=== PATIENT | female | born 1960 | race Caucasian/White ===

== ENCOUNTER 2018-02-27 19:35 | Inpatient (IN) | payer OTHER ==
[2018-02-27] MEDS ORDERED: NS 1,000 ML IV ONE (19:50)
--- NOTE | 2018-02-27 19:50 | EDPHY ---
H & P Stated Complaint: ABD bloating and pain Time Seen by Provider: 02/27/18 19:46 - Personal History Current Tetanus/Diphtheria Vaccine: Unsure Current Tetanus Diphtheria and Acellular Pertussis (TDAP): Unsure - Medical/Surgical History Hx Asthma: No Hx Chronic Respiratory Disease: No Hx Diabetes: No Hx Cardiac Disease: No Hx Renal Disease: No Hx Cirrhosis: No Hx Alcoholism: No Hx HIV/AIDS: No Hx Splenectomy or Spleen Trauma: No Other PMH: Factor V, Glaucoma - Social History Smoking Status: Never smoked Constitutional: Initial Vital Signs Temperature (C) 37.5 C 02/27/18 19:39 Heart Rate 118 H 02/27/18 19:39 Respiratory Rate 18 02/27/18 19:39 Blood Pressure 147/85 H 02/27/18 19:39 O2 Sat (%) 94 02/27/18 19:39 O2 Delivery Mode Room Air Allergies/Adverse Reactions: No Known Allergies Allergy (Verified 02/27/18 19:43) Home Medications: Medication Instructions Recorded Aspirin EC [Aspirin EC 81 mg (*)] 81 mg PO HS 02/27/18 Dorzolamide 2% [Trusopt 2% (*)] 1 drop EACHEYE BID 02/27/18 Latanoprost 0.005% [Xalatan 0.005% 1 drop EACHEYE HS 02/27/18 (*)] Timolol 0.5% [TIMOPTIC 0.5% (*)] 1 drop EACHEYE BID 02/27/18 Medical Decision Making - Diagnostics Imaging Results: Imaging Impressions Abdomen CT 02/27/18 19:51 Impression: 1. Two pelvic abscesses in the lower pelvis adjacent to the right side of the sigmoid colon most likely from sigmoid diverticulitis. 2. No appendicitis or bowel obstruction. Findings and recommendations discussed with Emergency Department physician, Harley Frias M.D., at 2110 hours on February 27, 2018. Final report concurs with initial preliminary interpretation. Imaging: Discussed imaging studies w/ call center director Radiologist ED Course/Re-evaluation: CHIEF COMPLAINT: Abdominal pain, bloating. HISTORY OF PRESENT ILLNESS: This patient is a 57 year old female with history of factor V Leiden arriving with her . She presents at the request of her primary care provider for evaluation of abdominal pain and an elevated white blood cell count. Her symptoms began around 02/13/18 after she and her had lobster dinner. They both initially had some abdominal discomfort, but his resolved after several days. She developed periumbilical pain initially, which radiated towards her right and left lower quadrant. This has persisted and is in different areas of her abdomen at different times. She has felt bloated during this time as well. She denies fever, vomiting, diarrhea, chest pain, shortness of breath, hematemesis, hematochezia, melena, or other associated symptoms. No history of abdominal surgeries. REVIEW OF SYSTEMS: A comprehensive 10 system review of systems is otherwise negative aside from elements mentioned in the history of present illness and medical decision making. PHYSICAL EXAM: HR, BP, O2 Sat, RR. Temp noted General Appearance: Alert, well hydrated, appropriate, and non-toxic appearing. Head: Atraumatic without scalp tenderness or obvious injury Eyes: Pupils equal, round, reactive to light and accommodation, EOMI, no trauma , no injection. Ears: Clear bilaterally, no perforation, normal landmarks Nose: Atraumatic, no rhinorrhea, clear. Throat: There is no erythema or exudates, no lesions, normal tonsils, mucus membranes moist. Neck: Supple, 2+ carotid upstroke, nontender, no lymphadenopathy. Respiratory: No retractions, no distress, no wheezes, and no accessory muscle use. Lungs are clear to auscultation bilaterally. Cardiovascular: Regular rate and rhythm, no murmurs, rubs, or gallops. Bilateral carotid, radial, dorsalis pedis, and posterior tibial pulses intact. Good capillary refill all extremities. Gastrointestinal: Mild LRQ tenderness. Abdomen is soft, non-distended, no masses , no rebound, no guarding, no peritoneal signs. Musculoskeletal: Normal active ROM of all extremities, atraumatic. Neurological: Alert, appropriate, and interactive. Nonfocal neuro exam. Skin: No rashes, good turgor, no nodules on palpation. Past medical history: Factor V Leiden Past surgical history: Noncontributory, no history of abdominal surgeries. Family history: Noncontributory Social history: . at bedside. Does not abuse tobacco, drugs, or alcohol. DIFFERENTIAL DIAGNOSIS: The differential diagnosis for the patient's abdominal pain included but was not limited to diverticulitis, ovarian cyst, pelvic inflammatory disease, ovarian torsion, urinary tract infection, cholecystitis, and appendicitis. MEDICAL DECISION MAKING: This patient is a 57 year old female complaining of abdominal pain and bloating ongoing for nearly three weeks. Plan for labs including CBC, chemistries, liver , lipase. Plan for CT abdomen/pelvis. WBC elevated at 18,000. Patient does not appear systemically ill at this time and does not complain of significant pain. 21:[address] Joya, radiologist. CT abdomen/pelvis shows two pelvic abscesses in the lower pelvis adjacent to the right side of the sigmoid colon most likely from sigmoid diverticulitis. No appendicitis or bowel obstruction. Plan to administer Ceftriaxone and Flagyl. Plan to consult with general surgery. 21:[address] Coleman, general surgeon. He will consult for possible surgical intervention. He requests this patient be admitted to the medicine service for perioperative management. 21:[address] Copeland, hospitalist. She accepts admission for sigmoid diverticulitis with abscesses and perforation. - Data Points Laboratory Results: Laboratory Results 02/27/18 20:00 02/27/18 20:00 02/27/18 02/27/18 02/27/18 20:04 20:00 20:00 WBC 17.99 10^3/uL H 10^3/uL (3.80-9.50) RBC 4.26 10^6/uL 10^6/uL (4.18-5.33) Hgb 13.3 g/dL g/dL (12.6-16.3) Hct 41.0 % % (38.0-47.0) MCV 96.2 fL fL (81.5-99.8) MCH 31.2 pg pg (27.9-34.1) MCHC 32.4 g/dL g/dL (32.4-36.7) RDW 12.7 % % (11.5-15.2) Plt Count 407 10^3/uL H 10^3/uL (150-400) MPV 8.7 fL fL (8.7-11.7) Neut % (Auto) 77.0 % H % (39.3-74.2) Lymph % (Auto) 14.9 % L % (15.0-45.0) [place] % (Auto) 6.8 % % (4.5-13.0) Eos % (Auto) 0.4 % L % (0.6-7.6) Baso % (Auto) 0.3 % % (0.3-1.7) Nucleat RBC Rel Count 0.0 % % (0.0-0.2) Absolute Neuts (auto) 13.85 10^3/uL H 10^3/uL (1.70-6.50) Absolute Lymphs (auto) 2.68 10^3/uL 10^3/uL (1.00-3.00) Absolute Monos (auto) 1.23 10^3/uL H 10^3/uL (0.30-0.80) Absolute Eos (auto) 0.07 10^3/uL 10^3/uL (0.03-0.40) Absolute Basos (auto) 0.05 10^3/uL 10^3/uL (0.02-0.10) Absolute Nucleated RBC 0.00 10^3/uL 10^3/uL (0-0.01) Immature Gran % 0.6 % % (0.0-1.1) Immature Gran # 0.11 10^3/uL H 10^3/uL (0.00-0.10) Sodium 140 mEq/L mEq/L (135-145) Potassium 3.9 mEq/L mEq/L (3.5-5.2) Chloride 108 mEq/L mEq/L (97-110) Carbon Dioxide 23 mEq/l mEq/l (22-31) Anion Gap 9 mEq/L mEq/L (6-14) BUN 11 mg/dL mg/dL (7-23) Creatinine 0.8 mg/dL mg/dL (0.6-1.0) Estimated GFR > 60 Glucose 110 mg/dL H mg/dL (70-100) Calcium 9.2 mg/dL mg/dL (8.5-10.4) Total Bilirubin 0.3 mg/dL mg/dL (0.1-1.4) Conjugated Bilirubin 0.3 mg/dL mg/dL (0.0-0.5) Unconjugated Bilirubin 0.0 mg/dL mg/dL (0.0-1.1) AST 33 IU/L IU/L (14-46) ALT 65 IU/L H IU/L (9-52) Alkaline Phosphatase 102 IU/L IU/L (38-126) POC Troponin I 0.00 ng/mL ng/mL (0.00-0.08) Total Protein 6.4 g/dL g/dL (6.3-8.2) Albumin 3.6 g/dL g/dL (3.5-5.0) Lipase 185 IU/L IU/L (23-300) Medications Given: Discontinued Medications Sodium Chloride (Ns) 1,000 mls @ 0 mls/hr IV EDNOW ONE; Wide Open PRN Reason: Protocol Stop: 02/27/18 19:51 Last Admin: 02/27/18 20:02 Dose: 1,000 mls Ceftriaxone Sodium/Dextrose (Rocephin 1 Gm (Premix)) 50 mls @ 100 mls/hr IV EDNOW ONE PRN Reason: Protocol Stop: 02/27/18 22:02 Last Admin: 02/27/18 21:53 Dose: 50 mls Metronidazole/Sodium Chloride (Flagyl 500 Mg (Premix)) 100 mls @ 100 mls/hr IV EDNOW ONE PRN Reason: Protocol Stop: 02/27/18 22:32 Last Admin: 02/27/18 22:35 Dose: 100 mls Point of Care Test Results: Chemistry 02/27/18 20:04 POC Troponin I 0.00 ng/mL ng/mL (0.00-0.08) Departure - Departure Disposition: [facility] Inpatient Acute Clinical Impression: Diverticulitis of intestine with perforation and abscess Qualifiers: Diverticulitis site: large intestine Diverticulitis bleeding: without bleeding Qualified Code(s): K57.20 - Diverticulitis of large intestine with perforation and abscess without bleeding Condition: Fair Report Scribed for: Harley Frias Report Scribed by: Jane Allen Date of Report: 02/27/18 Time of Report: 22:16
[2018-02-27] MEDS ORDERED: IOPAMIDOL (ISOVUE 370) 100 ML BTL IV ONE (20:07)
[2018-02-27 20:10] LABS: PLATELET COUNT 407 10^3/uL (150-400)
--- NOTE | 2018-02-27 21:55 | PDGENHP ---
History and Physical History and Physical: Chief complaint: Abdominal pain History of present illness: The patient is a 57yo F here for abd pain that began about 12 days ago. She had eaten lobster, as well as her , and afterward they both experienced lower abdominal discomfort for several days. His discomfort resolved, but hers did not. Her abdominal discomfort has been constant. She has felt fevers at night which self-resolved. No nausea or vomiting. No diarrhea or blood in the stool. She has felt constipated and was taking Metamucil TID and drinking prune juice. Her stools looked abnormal - sometimes [place] and covered in mucus. Symptoms are better with rest and having a BM. Symptoms are worse with moving around too much. Other associated symptoms: feels off balance with moving and more irritable in the last couple weeks. Past medical history: DVT, factor 5 Leiden mutation, glaucoma. Past surgical history: Partial Hysterectomy - uterus. Medications: Please see med rec form. Allergies: No known allergies. Social history: Never smoker. Does not drink or do drugs. , lives with . Owns a business. Family history: Mother - lupus. Father- heart condition. Sisters - factor V Leiden and glaucoma. Review of systems: 10 point review of systems was conducted and is negative except per HPI. Physical exam: Vitals: Reviewed General: The patient is a female who is alert and in no acute distress. HEENT: normocephalic, extraocular movements intact, conjunctivae clear, no lesions on face. Mucous membranes moist. Neck: trachea midline, no visible masses, no external lesions. CV: +S1/S2, RRR, no MRG. Resp: unlabored, CTAB no RRW. Abd: soft and nondistended. LLQ tenderness. No rebound tenderness or guarding. Musculoskeletal: Normal muscle tone and bulk. Neuro: cranial nerves II - XII grossly intact. Intact gross motor and sensory function. Psych: appropriate mood/affect. Skin: No pallor. Heme/lymph: No peripheral edema. Rectal: declined. Labs: WBC 18 platelets 407 glucose 110 ALT 65. Rest of labs are within normal limits. Other Data: CT of the abdomen and pelvis with contrast: 2 pelvic abscesses in lower pelvis adjacent to the right side of the sigmoid colon most likely from sigmoid diverticulitis. Impression and plan: Acute diverticulitis with complication Pelvic abscesses, 2/2 above Abd pain, 2/2 above Leukocytosis and thrombocytosis, 2/2 above Hyperglycemia -IVF. Cipro/Flagyl given in ED. -prn analgesics. -pt prefers prune juice over bowel protocol. -I have d/w Gen Surg Dr. Coleman who will see patient shortly. Pt will likely get surgery or IR drainage. -VTE ppx - start Lovenox after procedure. SCDs for now. -Code status - full. -Inpt for > 2 midnight stay, as pt needs IV Abx, IV fluids, surgery vs procedure with subsequent monitoring.
[2018-02-27] MEDS ORDERED: ACETAMINOPHEN 325 MG TAB PO PRN (22:20)
[2018-02-27] MEDS ORDERED: ONDANSETRON DISINTEGRATING 4 MG TAB PO PRN (22:20)
[2018-02-27] MEDS ORDERED: PROMETHAZINE HCL 25 MG/ML INJ IVP PRN (22:20)
[2018-02-27] MEDS ORDERED: HYDROCODONE/APAP 5/325 TAB PO PRN (22:20)
[2018-02-28] MEDS: NS W/ 20 KCl/L 1,000 ML IV SCH ×2 (00:18→18:11)
--- NOTE | 2018-02-28 02:18 | GCON ---
REFERRING PHYSICIAN: Harley Frias MD REASON FOR CONSULTATION: Diverticular abscesses (x2). HISTORY: The patient is a 57-year-old female who was in her usual state of good health until February 16, when she had the onset of abdominal pain. She has had no prior similar symptoms. She moves her bowels approximately once a day. There is no recent upper respiratory tract infection or diarrhea. Because of her abdominal pain, she essentially stopped eating due to the discomfort. Since admission, she has moved her bowels several times and her pain is now not diffuse, but more in the right lower quadrant and much improved. There is no history of inflammatory bowel disease. PAST MEDICAL HISTORY: She does not smoke. She drinks alcohol on a very rare occasion. ALLERGIES: She has no known drug allergies. MEDICATIONS: Only medications have been for her glaucoma and 81 mg aspirin because of her factor 5 Leiden deficiency. PAST SURGICAL HISTORY: Surgeries have been limited to a total abdominal hysterectomy which was complicated by a ureteral injury. That was reconstructed. She has had problems with microscopic hematuria since that time. She has also had a tonsillectomy and 1 vaginal . There is no history of rheumatic fever, tuberculosis, hepatitis, or transfusions. She has had glaucoma for approximately 10 years. She wears lenses for distance correction. She has had, I believe, 5 episodes of clots, 4 in her right leg and 1 in her right arm. The very 1st was when she started using oral contraceptives. Others were related to surgeries. There is a history of shingles. Her last mammogram was 2 years ago. She is known to have microscopic hematuria and has been worked up on a regular basis for that. She does not know if it persists at this time. There are no limits on her activities. No history of steroid use. PHYSICAL EXAMINATION: GENERAL: She is awake, alert, quite pleasant and engaging. VITAL SIGNS: Her blood pressure is 157/95 and her saturations are 94%. Her temperature is 37.2. HEENT: Skull is normocephalic and atraumatic. There is no cervical, supraclavicular, axillary or inguinal lymphadenopathy. LUNGS: Clear to auscultation. CARDIAC: Shows S1, S2 to be normal. Normal split of S2 without murmurs, rubs, or gallops. ABDOMEN: Tender approximately 3 fingerbreadths inferior to McBurney's point. It is tender with palpation or cough at a level of 2/10. Other than that, her abdomen is really quite soft. It is distended. She does have normoactive bowel sounds. LABORATORIES: Reveal a white count of 17.9 with 77% neutrophils. Her hematocrit is 41. Her platelet count is 407. INR is 1.04. Sodium is 140, potassium is 3.9, glucose is 110. Lipase is 185. By CT, she has 2 abscesses, 1 of which is 4.3 x 2.5 x 7.8 cm. The other is 6.2 x 3.2 cm. She also has a right renal cyst. IMPRESSION/PLAN: This patient does not appear toxic at this point. I would recommend that we continue IV antibiotics, hold her n.p.o. and see how she does by the morning. These 2 abscesses down in the pelvis will be difficult to reach percutaneously. If she continues to improve, we can approach it nonoperatively. If she fails to continue to progress, then I feel bowel prep and surgical exploration may be necessary, perhaps with a sigmoid resection. The patient understands the approach and agrees to proceed as outlined. /[id number]/MODL MTDD
[2018-02-28 05:41] LABS: PLATELET COUNT 431 10^3/uL (150-400)
[2018-02-28] MEDS: ACETAMINOPHEN 500 MG TAB PO SCH ×3 (05:51→23:18)
[2018-02-28] MEDS ORDERED: PIPERACILLIN/TAZO 3.375 GM/DEX 50 ML IV SCH (06:00)
[2018-02-28] MEDS: TIMOLOL 0.5% 15 ML OPHT.BTL EACHEYE SCH ×3 (08:00→19:43)
[2018-02-28] MEDS ORDERED: NITROGLYCERIN 0.4 MG BTL SL PRN (08:47)
[2018-02-28] MEDS ORDERED: ERTAPENEM 1 GM in NS 100 ML IV SCH (09:00)
[2018-02-28] MEDS: DORZOLAMIDE 2% OPTH DROPS EACHEYE SCH ×2 (09:05→19:43)
[2018-02-28] MEDS: ERTAPENEM 1 GM in NS 100 ML IV SCH (09:55)
--- NOTE | 2018-02-28 11:29 | PDCONSULT ---
Manager Acute Note: 02/28/2018 PAD#2 Assessment: Feels well, Having frequent stools, Afebrile, WBC essentially stable, % neutrophils decreased slightly. Abdomen minimally tender. Tolerating process well. Plan: Patient with two abscesses of moderate sizes that would not be amenable to percutaneous drainage per Radiology yesterday. If improves with antibiotic approach will continue along that path. As I doubt that that will be our course , I will plan a bowel prep today so that surgical exploration safety will be optimized if exploration is necessary.
[2018-02-28] MEDS ORDERED: PEG 3350/NA SULF,BICARB,CL/KCL (GAVILYTE-G) 4000 ML BTL PO ONE (11:30)
--- NOTE | 2018-02-28 12:12 | ASMTCMCOM ---
CM Note CM Note Notes: Pt is a 57 y/o female admitted for abdominal pain. Pt will most likely d/c independent when medically stable. No therapies ordered at this time. CM available for changes. Plan: Independent Date Signed: 02/28/2018 12:12 PM Electronically Signed By:MUNA Houston
--- NOTE | 2018-02-28 14:38 | CPEKG ---
Test Reason : OPEN Blood Pressure : / mmHG Vent. Rate : 077 BPM Atrial Rate : 077 BPM P-R Int : 138 ms QRS Dur : 078 ms QT Int : 379 ms P-R-T Axes : 068 031 044 degrees QTc Int : 429 ms Sinus rhythm Confirmed by Georges Garcia ([id number]) on 02/28/2018 2:38:18 PM Referred By: Confirmed By:Georges Garcia
--- NOTE | 2018-02-28 15:21 | PDMN ---
Medical Necessity Medical necessity: Pt meets inpt criteria per MD order and MCG M-150, Diverticulitis, Acute w/abcess. 57 y/o presenting w/abd pain, admitted w/acute diverticulitis complicated by mod size pelvic abscesses, IV ABX's, surg consult- may need surg intervention. Est LOS>2MN for ongoing eval/management of above.
[2018-02-28] MEDS: ERYTHROMYCIN BASE 250 MG PO SCH ×4 (17:25→22:36)
[2018-02-28] MEDS: NEOMYCIN SULF 500 MG TAB PO SCH ×4 (17:29→22:35)
--- NOTE | 2018-02-28 17:33 | HOSPPROG ---
Hospitalist Progress Note Assessment/Plan: * Acute diverticulitis with abscess -IV invanz per Dr. Coleman preference * Intra-abdominal abscess x 2 -reviewed with Dr. Garcia - abscess too large for medical therapy -location likely not amenable to percutaneous drainage -will likely need surgery - Dr. Coleman starting prep * Sepsis as evidenced by leukocytosis and tachycardia * h/o DVT with + Factor V Leiden -Lovenox x 1 today as no plan for imminent surgery Subjective: Still with lower abdominal pressure Objective: Vital Signs Temp Pulse Resp BP Pulse Ox 36.6 C 86 16 150/96 H 94 02/28/18 15:24 02/28/18 15:24 02/28/18 15:24 02/28/18 15:24 02/28/18 15:24 Laboratory Results 02/28/18 04:24 02/28/18 04:24 02/27/18 02/28/18 03/01/18 05:59 05:59 05:59 Intake Total 1600 Balance 1600 d/w Dr. Coleman - will likely need surgery, he is starting prep CT abd - large 7cm abscess - Physical Exam Constitutional: no apparent distress, appears nourished, not in pain Cardiovascular: regular rate and rhythym, no murmur, rub, or gallop Respiratory: no respiratory distress, no rales or rhonchi, clear to auscultation Gastrointestinal: tenderness, distension, No ascites, No guarding, No rebound Skin: no rashes or abrasions, no fluctuance, no induration Neurologic: AAOx3, sensation intact bilaterally Psychiatric: interacting appropriately, not anxious, not encephalopathic, thought process linear ICD10 Worksheet Patient Problems: Problems Problem Status Onset Diverticulitis of intestine with perforation and abscess Acute
[2018-02-28] MEDS ORDERED: ENOXAPARIN 40 MG/0.4 ML SYR SC ONE (17:37)
[2018-02-28] MEDS: LATANOPROST 0.005% 2.5 ML OPHT DROPS EACHEYE SCH (19:43)
[2018-02-28] MEDS ORDERED: PROCHLORPERAZINE MALEATE 25 MG SUPPR PR ONE (21:00)
[2018-02-28] MEDS: SCOPOLAMINE HYDROBROMIDE 1 MG/3 DAYS PATCH TD SCH (21:34)
[2018-03-01] MEDS: ERYTHROMYCIN BASE 250 MG PO SCH ×2 (02:40→06:32)
[2018-03-01] MEDS: NEOMYCIN SULF 500 MG TAB PO SCH ×2 (02:40→06:33)
[2018-03-01 06:14] LABS: PLATELET COUNT 385 10^3/uL (150-400)
[2018-03-01] MEDS: ACETAMINOPHEN 500 MG TAB PO SCH ×3 (06:36→22:15)
[2018-03-01] MEDS: D5W 1/2 NS W/ 20 KCl/L 1,000 ML IV SCH ×2 (07:39→20:15)
--- NOTE | 2018-03-01 08:46 | SOAPPROG ---
KAREN Progress Note Assessment/Plan: Assessment/Plan: Covering for Dr. Coleman today regarding surgical options for treatment of perforated diverticulitis. The patient has 2 intra-abdominal abscesses 1 on the right lower pelvis close to the rectum is amenable to drainage percutaneously however then larger mid abdominal contained abscess on likely a to be able to have percutaneous drainage. She is clinically stable diffuse asking for water today. She has undergone bowel prep. CT scan of the abdomen and pelvis to reassess abscess is pending. Even if the right lower abscess is amenable to drainage, she will still likely need intervention if she does not improve. The area of perforation is not well defined and questions of laparoscopic vs open surgical drain placement for the mid abdominal abscess is on the table. She may need formal resection if the area of perforation has not sealed or is so undefined. Given the fact that she may need surgical resection temporary colostomy must be considered also. White blood cell count today is 16 down from 17 which is stable. The patient has no additional pain or fevers. Her heart rate has been between 80s and 90s over the last 12 hrs. No concerns for deterioration today. Regular rate and rhythm Clear to auscultation Abdomen soft diffusely tender mostly in the lower abdomen no david peritonitis. Extremities without edema Impression/plan likely perforated diverticulitis with 2 contained abscesses right lower quadrant amenable to percutaneous drainage. Reassess mid abdominal abscess to see whether it is amenable to percutaneous drainage as well which could temporize an operation until a single stage procedure can be done. Alternatively laparotomy with colostomy on option. Follow-up today after CT scan. Will discuss with interventional Radiology. Discussion with patient held all questions were answered. 03/01/18 08:36 Objective: Vital Signs Temp Pulse Resp BP Pulse Ox 36.8 C 91 18 152/96 H 95 03/01/18 07:35 03/01/18 07:35 03/01/18 07:35 03/01/18 07:35 03/01/18 07:35 Laboratory Results 03/01/18 04:52 03/01/18 04:52 02/28/18 03/01/18 03/02/18 05:59 05:59 05:59 Intake Total 1600 Output Total 250 Balance 1600 -250 ICD10 Worksheet Patient Problems: Problems Problem Status Onset Diverticulitis of intestine with perforation and abscess Acute
[2018-03-01] MEDS: DORZOLAMIDE 2% OPTH DROPS EACHEYE SCH ×2 (09:13→20:17)
[2018-03-01] MEDS: TIMOLOL 0.5% 15 ML OPHT.BTL EACHEYE SCH ×2 (09:13→20:16)
[2018-03-01] MEDS: ERTAPENEM 1 GM in NS 100 ML IV SCH (09:17)
[2018-03-01] MEDS: KETOROLAC 30 MG/1 ML SDV IVP PRN (10:23)
[2018-03-01] MEDS ORDERED: IOPAMIDOL (ISOVUE 370) 100 ML BTL IV ONE (12:15)
[2018-03-01] MEDS ORDERED: HYDROmorphONE/DILAUDID 1 MG/ML INJ IVP PRN (12:59)
--- NOTE | 2018-03-01 17:18 | HOSPPROG ---
Hospitalist Progress Note Assessment/Plan: * Acute diverticulitis with abscess -IV invanz per Dr. Coleman preference * Intra-abdominal abscess x 2 -abscess too large for medical therapy -location not amenable to percutaneous drainage - d/w Dr. Butt -will likely need surgery - d/w Dr. Ramirez * Sepsis as evidenced by leukocytosis and tachycardia * h/o DVT with + Factor V Leiden -Lovenox x 1 today as no plan for imminent surgery Subjective: not real change Objective: Vital Signs Temp Pulse Resp BP Pulse Ox 36.8 C 74 18 152/96 H 94 03/01/18 15:57 03/01/18 15:57 03/01/18 15:57 03/01/18 15:57 03/01/18 15:57 Laboratory Results 03/01/18 04:52 03/01/18 04:52 02/28/18 03/01/18 03/02/18 05:59 05:59 05:59 Intake Total 1600 Output Total 250 Balance 1600 -250 ct abd - persistent abscess - Physical Exam Constitutional: no apparent distress, appears nourished, not in pain Cardiovascular: regular rate and rhythym, no murmur, rub, or gallop Respiratory: no respiratory distress, no rales or rhonchi, clear to auscultation Gastrointestinal: tenderness, distension, No guarding, No rebound Skin: no rashes or abrasions, no fluctuance, no induration Neurologic: AAOx3, sensation intact bilaterally Psychiatric: interacting appropriately, not anxious, not encephalopathic, thought process linear ICD10 Worksheet Patient Problems: Problems Problem Status Onset Diverticulitis of intestine with perforation and abscess Acute
[2018-03-01] MEDS: LATANOPROST 0.005% 2.5 ML OPHT DROPS EACHEYE SCH (20:17)
[2018-03-02] MEDS: ACETAMINOPHEN 500 MG TAB PO SCH ×3 (05:13→22:34)
[2018-03-02] MEDS: D5W 1/2 NS W/ 20 KCl/L 1,000 ML IV SCH (05:14)
[2018-03-02 06:03] LABS: PLATELET COUNT 398 10^3/uL (150-400)
--- NOTE | 2018-03-02 08:33 | PDCONSULT ---
Steel Inspector Note: 03/02/2018 PAD#3 Assessment: She has two intra-abdominal abscesses and sigmoid diverticulitis. There does not appear to be an ongoing colonic leak. She is on antibiotic therapy and is not toxic but is not improving. Unfortunately the central abscess is not amenable to percutaneous drainage. She has undergone a mechanical and antibiotic bowel prep in anticipation of a laparotomy today. I plan to drain the abscesses. If there is no colonic leak I will not plan a colonic resection at this time. If a colonic resection is required, a colostomy is a possibility. Because of her Factor V Leiden associated hypercoagulopathy, an ultrasound exam will be performed this AM ( done but not read ). If a DVT is identified, a filter will be considered. Will plan post op Lovenox as well as ambulation. Exam: Awake and alert VSS Lungs clear, normal breath sounds Regular heart rate and rhythm abdomen is distended but has positive bowel sounds Plan: Duplex evaluation, filter (temporary) if necessary Exploratory laparotomy today. Doubt that post op ICU visit will be necessary
[2018-03-02] MEDS: DORZOLAMIDE 2% OPTH DROPS EACHEYE SCH ×2 (09:10→20:02)
[2018-03-02] MEDS: TIMOLOL 0.5% 15 ML OPHT.BTL EACHEYE SCH ×2 (09:11→20:02)
[2018-03-02] MEDS ORDERED: LR 1,000 ML IV ONE (09:25)
[2018-03-02] MEDS: ERTAPENEM 1 GM in NS 100 ML IV SCH (09:30)
[2018-03-02] MEDS ORDERED: MIDAZOLAM 2 MG/2 ML VIAL IVP ONE (10:27)
--- NOTE | 2018-03-02 10:27 | PDANEPAE ---
ANE History of Present Illness diverticular abscess ANE Past Medical History - Cardiovascular History Hx Hypertension: No Hx Arrhythmias: No Hx Chest Pain: No Hx Coronary Artery / Peripheral Vascular Disease: No Hx CHF / Valvular Disease: No Hx Palpitations: No - Pulmonary History Hx COPD: No Hx Asthma/Reactive Airway Disease: No Hx Recent Upper Respiratory Infection: No Hx Oxygen in Use at Home: No Hx Sleep Apnea: No Sleep Apnea Screening Result - Last Documented: Negative - Neurologic History Hx Cerebrovascular Accident: No Hx Seizures: No Hx Dementia: No - Endocrine History Hx Diabetes: No Hypothyroid: No Hyperthyroid: No Obesity: no - Renal History Hx Renal Disorders: No - GI History GERD: no Hx Gastrointestinal Disorders: Yes Gastrointestinal History Comment: Diverticulosis. Now has diverticular abscess x 2 - Chronic Pain History Chronic Pain: No ANE Review of Systems Review of systems is: negative Review of Systems: - Exercise capacity Exercise capacity: >=4 METS ANE Patient History - Allergies Allergies/Adverse Reactions: No Known Allergies Allergy (Verified 02/27/18 19:43) - Home Medications Home medications: home medication list seen and reviewed Home Medications: Aspirin EC [Aspirin EC 81 mg (*)] 81 mg PO HS 02/27/18 [Last Taken 02/26/18] Dorzolamide 2% [Trusopt 2% (*)] 1 drop EACHEYE BID 02/27/18 [Last Taken 21:00] Latanoprost 0.005% [Xalatan 0.005% (*)] 1 drop EACHEYE HS 02/27/18 [Last Taken 02/27/18 21:00] Timolol 0.5% [TIMOPTIC 0.5% (*)] 1 drop EACHEYE BID 02/27/18 [Last Taken 21:00] - NPO status NPO Status: no food or drink >8 hours NPO Since - Liquids (Date): 03/02/18 NPO Since - Liquids (Time): 00:00 NPO Since - Solids (Date): 03/02/18 NPO Since - Solids (Time): 00:00 - Smoking Hx Smoking Status: Never smoked - Family Anes Hx Family Anes Hx: none ANE Labs/Vital Signs - Labs Result Diagrams: 03/02/18 05:07 03/02/18 05:07 - Vital Signs Vital Signs: reviewed preoperatively; see RN documention for details Blood Pressure: 166/105 Heart Rate: 81 Respiratory Rate: 16 O2 Sat (%): 97 Height: 162.56 cm Weight: 67.9 kg ANE Physical Exam - Airway Neck exam: FROM Mallampati Score: Class 2 Mouth exam: normal dental/mouth exam - Pulmonary Pulmonary: no respiratory distress - Cardiovascular Cardiovascular: regular rate and rhythym - ASA Status ASA Status: II, E ANE Anesthesia Plan Anesthesia Plan: general endotracheal anesthesia Regional Anesthesia: TAP block
[2018-03-02] MEDS ORDERED: MIDAZOLAM 2 MG/2 ML VIAL ONE (10:28)
[2018-03-02] MEDS ORDERED: fentaNYL 100 MCG/2 ML INJ ONE (10:33)
[2018-03-02] MEDS ORDERED: PROPOFOL 200 MG/20 ML VIAL ONE ×2 (10:33)
[2018-03-02] MEDS ORDERED: ROCURONIUM 50 MG/5 ML VIAL ONE (10:44)
[2018-03-02] MEDS ORDERED: LIDOCAINE 2% 5 ML SDV ONE (10:44)
[2018-03-02] MEDS ORDERED: DEXAMETHASONE 4 MG/ML VIAL ONE ×2 (10:56)
[2018-03-02] MEDS ORDERED: HYDROmorphONE/DILAUDID 2 MG/ML INJ ONE (10:56)
[2018-03-02] MEDS ORDERED: ONDANSETRON 4 MG/2 ML VIAL ONE (10:59)
[2018-03-02] MEDS ORDERED: oxyCODONE IR 5 MG TAB PO PRN (11:07)
[2018-03-02] MEDS ORDERED: fentaNYL 100 MCG/2 ML INJ IVP PRN (11:07)
[2018-03-02] MEDS ORDERED: HYDROmorphONE/DILAUDID 2 MG/ML INJ IVP PRN (11:07)
[2018-03-02] MEDS ORDERED: LR 500 ML IV PRN (11:07)
[2018-03-02] MEDS ORDERED: NALOXONE HCL 0.4 MG/ML INJ IVP PRN (11:07)
[2018-03-02] MEDS ORDERED: ACETAMINOPHEN 500 MG TAB PO PRN (11:07)
[2018-03-02] MEDS ORDERED: LABETALOL HCL 5 MG/ML 20 ML MDV IVP PRN (11:07)
[2018-03-02] MEDS ORDERED: PHENYLEPHRINE HCL 100 MCG/ML SYR IVP PRN (11:07)
[2018-03-02] MEDS ORDERED: ALBUTEROL 3 ML DEYVIAL IH PRN (11:07)
[2018-03-02] MEDS ORDERED: PROMETHAZINE HCL 25 MG/ML INJ IVP PRN (11:07)
[2018-03-02] MEDS ORDERED: METOCLOPRAMIDE 10 MG/2 ML VIAL IVP PRN (11:07)
[2018-03-02] MEDS ORDERED: MEPERIDINE 25 MG/0.5 ML AMP IVP PRN (11:07)
[2018-03-02] MEDS ORDERED: ROPIVACAINE HCL 150 MG/30 ML INJ ONE (11:24)
[2018-03-02] MEDS ORDERED: SUGAMMADEX SODIUM 200 MG/2 ML VIAL IVP ONE (11:28)
[2018-03-02] MEDS ORDERED: KETOROLAC 30 MG/1 ML SDV ONE (11:58)
[2018-03-02] MEDS ORDERED: BACITRACIN ZINC 0.5 OZ OINTTUBE TP ONE (12:04)
[2018-03-02] MEDS ORDERED: HYDROmorphONE/DILAUDID 1 MG/ML INJ IVP PRN (12:12)
--- NOTE | 2018-03-02 12:19 | POSTOPPROG ---
Post Op Note Date of Operation: 03/02/18 Surgeon: Shankar Coleman Anesthesia: GET(General Endotracheal) Pre-op Diagnosis: Sigmoid diverticulitis with two intra-abdominal abscesses Post-op Diagnosis: Sigmoid diverticulitis with two intra-abdominal abscesses Indication: Sigmoid diverticulitis with two intra-abdominal abscesses Procedure: Exploratory laparotomy, Drainage of abscesses with MARY drains Findings: Sigmoid diverticulitis with two intra-abdominal abscesses Inf/Abcess present in the surg proc area at time of surgery?: Yes Depth: Organ Space EBL: Minimal Total fluids administered: 1000 Complications: none Drains: Larry Ireland (Cephalad drain goes to the intramesenteric abscess Cauldal drain goes to the pelvic fluid collection)
--- NOTE | 2018-03-02 12:20 | POSTANESTH ---
Post Anesthetic Evaluation Cardiovascular Status: Normal, Stable Respiratory Status: Normal, Stable Level of Consciousness/Mental Status: Can Participate in Eval Pain Control: Adequate, Prn Tx Ordered Nausea/Vomiting Control: Adequate, Prn Tx Ordered Complications Possibly Related to Anesthesia: None Noted
[2018-03-02] MEDS ORDERED: METOCLOPRAMIDE 10 MG/2 ML VIAL ONE (12:43)
--- NOTE | 2018-03-02 13:33 | ASMTCMCOM ---
CM Note CM Note Notes: Reviewed chart. Pt is s/p an exploratory laparotomy today for drainage of two intra-abdominal abscesses with MARY drains. Discharge plan remains unclear at this time. No therapies ordered. CM will continue to follow for any potential needs. Discharge Plan: To be determined, likely independent Date Signed: 03/02/2018 01:32 PM Electronically Signed By:Maria E Fraire RN
[2018-03-02] MEDS: LR 1,000 ML IV SCH ×2 (14:27→23:35)
[2018-03-02] MEDS: ONDANSETRON 4 MG/2 ML VIAL IVP PRN (14:32)
--- NOTE | 2018-03-02 17:44 | HOSPPROG ---
Hospitalist Progress Note Assessment/Plan: * Acute diverticulitis with abscess -IV invanz per Dr. Leon preference * Intra-abdominal abscess x 2 -abscess too large for medical therapy -location not amenable to percutaneous drainage -s/p OR with Dr. Leon * Sepsis as evidenced by leukocytosis and tachycardia -follow WBC closely * h/o DVT with + Factor V Leiden -Lovenox Subjective: Seen post-op, no complaints other than anticipated post op discomfort. nausea Objective: Vital Signs Temp Pulse Resp BP Pulse Ox 36.8 C 78 16 166/93 H 91 L 03/02/18 16:45 03/02/18 16:45 03/02/18 16:45 03/02/18 16:45 03/02/18 16:45 Microbiology 03/02/18 11:30 Gram Stain - Final Other - Eswab 03/02/18 11:28 Gram Stain - Final Other - Eswab Laboratory Results 03/02/18 05:07 03/02/18 05:07 03/01/18 03/02/18 03/03/18 05:59 05:59 05:59 Intake Total 1200 1620 Output Total 250 185 Balance -250 1200 1435 d/w dr. leon - no colostomy done, abscess drained, MARY in place BLE US - no DVT - Physical Exam Constitutional: no apparent distress, appears nourished, not in pain Cardiovascular: regular rate and rhythym, no murmur, rub, or gallop Respiratory: no respiratory distress, no rales or rhonchi, clear to auscultation Gastrointestinal: tenderness, distension, No guarding, No rebound Skin: no rashes or abrasions, no fluctuance, no induration Neurologic: AAOx3, sensation intact bilaterally Psychiatric: interacting appropriately, not anxious, not encephalopathic, thought process linear ICD10 Worksheet Patient Problems: Problems Problem Status Onset Diverticulitis of intestine with perforation and abscess Acute
[2018-03-02] MEDS: KETOROLAC 30 MG/1 ML SDV IVP PRN ×3 (18:43→23:31)
[2018-03-02] MEDS: LATANOPROST 0.005% 2.5 ML OPHT DROPS EACHEYE SCH (20:02)
--- NOTE | 2018-03-03 00:09 | GOP ---
DATE OF OPERATION: SURGEON: Shankar Coleman MD PREOPERATIVE DIAGNOSIS: Diverticulitis with intraabdominal abscess x2. POSTOPERATIVE DIAGNOSIS: Diverticulitis with intraabdominal abscess x2. PROCEDURE PERFORMED: Abdominal exploration with drainage of 2 intraabdominal abscesses. FINDINGS: Diverticulitis with intraabdominal abscess x2. ESTIMATED BLOOD LOSS: 30 cc. INDICATIONS: Diverticulitis with intraabdominal abscess x2. DESCRIPTION OF PROCEDURE: The patient was placed the operating table in supine position. She was placed under general endotracheal anesthesia. A surgical time-out was carried out and agreed to by all members of the operative team. She was clipped, prepped, and draped. The abdomen was carefully marked for a location for an ostomy should it become necessary. An incision was planned to the right of the umbilicus and carried to the right of the midline. The infraumbilical midline incision was incised. Incision was completed down to the fascia with Bovie electrocautery. The fascia was opened with cautery. It was elevated, and the peritoneum was entered. Subsequent incision was extended to the right of the umbilicus. Bookwalter retractor was brought to the table. Two 10 flat MARY drains were placed through the abdominal wall. One placed on the right side more cephalad will be for the central intramesenteric abscess, the inferior one will be for the low pelvic abscess. The bowel was carefully retracted with a Bookwalter retractor. Adhesions were carefully lysed with the Harmonic scalpel. An inflammatory mass was detected near the left pelvic brim. Careful blunt dissection was carried out to enter the abscess cavity. The yellow purulent fluid was drained (approximately 20 cc) . Cultures were obtained. The abscess cavity was well irrigated. The more cephalad entry Ivy drain was trimmed and placed into this site. Abdominal exploration was carried out blindly and bluntly in the pelvis. The inferior abscess cavity was entered. Only serous fluid drains. Nonetheless, a MARY drain was placed in the site as well. Both drains have been secured at the skin level with 3-0 silk. The wounds were well irrigated. The abdominal cavity was closed with a running suture of #0 PDS. The subcutaneous tissue was carefully irrigated. The skin was closed with ashu. The patient had a sterile dressing placed and was transferred to recovery in stable and satisfactory condition. FLUIDS: 1000 cc. /[id number]/MODL MTDD
[2018-03-03 05:41] LABS: PLATELET COUNT 464 10^3/uL (150-400)
[2018-03-03] MEDS: KETOROLAC 30 MG/1 ML SDV IVP PRN ×2 (05:43→17:44)
[2018-03-03] MEDS: ACETAMINOPHEN 500 MG TAB PO SCH ×3 (05:43→21:10)
[2018-03-03] MEDS: DORZOLAMIDE 2% OPTH DROPS EACHEYE SCH ×2 (07:39→21:10)
[2018-03-03] MEDS: TIMOLOL 0.5% 15 ML OPHT.BTL EACHEYE SCH ×2 (07:39→21:10)
[2018-03-03] MEDS: ERTAPENEM 1 GM in NS 100 ML IV SCH (07:47)
[2018-03-03] MEDS: ENOXAPARIN 40 MG/0.4 ML SYR SC SCH (07:48)
--- NOTE | 2018-03-03 08:17 | SOAPPROG ---
SOAP Progress Note Assessment/Plan: 03/03/18 08:10 POD#1 Assessment: Feels much better, Passing gas and stool, Drains serous, +/- BS, WBC up slightly as expected. Plan: Continue NPO Lovenox to start this morning Subjective: I feel much better! Objective: Vital Signs Temp Pulse Resp BP Pulse Ox 36.9 C 73 16 163/89 H 95 03/03/18 08:03 03/03/18 08:03 03/03/18 08:03 03/03/18 08:03 03/03/18 08:03 Microbiology 03/02/18 11:30 Gram Stain - Final Other - Eswab 03/02/18 11:28 Gram Stain - Final Other - Eswab Laboratory Results 03/03/18 04:50 03/03/18 04:50 03/02/18 03/03/18 03/04/18 05:59 05:59 05:59 Intake Total 1200 2370 Output Total 1210 Balance 1200 1160 - Time Spent With Patient Time Spent With Patient: 25 - Pending Discharge Pending Discharge Within 24 Hours: No Pending Discharge Within 48 Hours: No Physical Exam - Physical Exam General Appearance: WD/WN, alert, no apparent distress Respiratory: chest non-tender, lungs clear, normal breath sounds Cardiac/Chest: regular rate, rhythm Abdomen: non-tender, soft, distended, other (hypoactive bowel sounds, MARY sero- sanguinous) Pelvic Exam: deferred Rectal: deferred Back: Normal inspection Skin: normal color, warm/dry Neuro/Psych: no motor/sensory deficits, alert, normal mood/affect, oriented x 3 ICD10 Worksheet Patient Problems: Problems Problem Status Onset Diverticulitis of intestine with perforation and abscess Acute
[2018-03-03] MEDS: POTASSIUM Cl (KCl) 10 MEQ in D5W 1/2 NS 1,000 ML IV SCH ×2 (09:48→21:11)
--- NOTE | 2018-03-03 17:39 | HOSPPROG ---
Hospitalist Progress Note Assessment/Plan: * Acute diverticulitis with abscess -d/w Dr. Langston - ID to follow -IV ceftriaxone, IV flagyl * Intra-abdominal abscess x 2 -location not amenable to percutaneous drainage -s/p OR with Dr. Coleman * Sepsis as evidenced by leukocytosis and tachycardia -follow WBC closely * h/o DVT with + Factor V Leiden -Lovenox Subjective: lots of gas pain Objective: Vital Signs Temp Pulse Resp BP Pulse Ox 36.8 C 66 14 132/79 H 92 03/03/18 15:38 03/03/18 15:38 03/03/18 15:38 03/03/18 15:38 03/03/18 15:38 Microbiology 03/02/18 11:30 Gram Stain - Final Other - Eswab 03/02/18 11:28 Gram Stain - Final Other - Eswab Laboratory Results 03/03/18 04:50 03/03/18 04:50 03/02/18 03/03/18 03/04/18 05:59 05:59 05:59 Intake Total 1200 2370 Output Total 1210 Balance 1200 1160 Op report reviewed regarding abscess drainage - Physical Exam Constitutional: no apparent distress, appears nourished, not in pain Cardiovascular: regular rate and rhythym, no murmur, rub, or gallop Respiratory: no respiratory distress, no rales or rhonchi, clear to auscultation Gastrointestinal: no palpable masses, tenderness, distension, No normoactive bowel sounds, No guarding, No rebound Skin: no rashes or abrasions, no fluctuance, no induration Neurologic: AAOx3, sensation intact bilaterally Psychiatric: interacting appropriately, not anxious, not encephalopathic, thought process linear ICD10 Worksheet Patient Problems: Problems Problem Status Onset Diverticulitis of intestine with perforation and abscess Acute
[2018-03-03] MEDS: LATANOPROST 0.005% 2.5 ML OPHT DROPS EACHEYE SCH (21:10)
[2018-03-03] MEDS: SCOPOLAMINE HYDROBROMIDE 1 MG/3 DAYS PATCH TD SCH (21:55)
--- NOTE | 2018-03-03 22:21 | GCON ---
INFECTIOUS DISEASE CONSULTATION DATE OF CONSULTATION: 03/03/2018 REQUESTING PHYSICIAN: Mamta Esposito MD. REASON FOR CONSULTATION: Diverticular abscess. HISTORY OF PRESENT ILLNESS: The patient is a 57-year-old female with a past medical history of factor V Leiden whom I am asked to see in consultation for diverticulitis and diverticular abscess. Patient describes developing lower abdominal pain bilaterally approximately 10 days prior to admission. She associated this with eating some lobster which her had also eaten and they both had similar abdominal pain. However, hers did not resolve and was subsequently associated with fever and chills. She did not have nausea, vomiting, or diarrhea. Patient did note that she had accompanying constipation. She was seen by her primary care provider and noted to have a leukocytosis, prompting further evaluation. CT scan of the abdomen and pelvis was performed which showed evidence of diverticulitis with concomitant diverticular abscess with one in the lower posterior right pelvis measuring 4.3 x 2.5 x 7.8 cm and the 2nd being centrally located measuring 6.2 x 3.2 x 3.8 cm. The central abscess was not felt to be amenable to percutaneous drainage. The patient was treated medically with ertapenem but did not have improvement of her symptoms, and repeat CT scan showed slight increase in size of the more central abscess. Therefore, she was taken to the operating room yesterday for open incision and drainage. Yellow purulent fluid was noted intraoperatively. No evidence of perforation was noted, and the patient did not undergo colonic resection. Gram stain of the purulent material has shown GPCs in chains. Cultures are now showing growth of both gram-positive cocci and a gram-negative norma. Gram-positive cocci characteristics are suggestive of a streptococcal species. Patient complains of postoperative abdominal pain and bloating. No prior history of diverticulitis. Given the above findings, I am now asked to assist in her ongoing management. PAST MEDICAL HISTORY: Factor V Leiden, DVT, glaucoma. PAST SURGICAL HISTORY: Hysterectomy complicated by ureteral injury. CURRENT MEDICATIONS: Ertapenem 1 g IV daily, Lovenox 40 mg subcu daily, Toradol as needed, Dilaudid as needed, scopolamine patch every 72 hours, Timoptic eyedrops twice daily. ALLERGIES: No known drug allergies. SOCIAL HISTORY: Patient does not smoke, drink significant alcohol, or use drugs. FAMILY HISTORY: Diverticulitis in her aunt, factor V Leiden. REVIEW OF SYSTEMS: Outside that noted in the HPI, the remainder of 10-system review is unremarkable. PHYSICAL EXAMINATION: VITAL SIGNS: Temperature 36.9, heart rate 73, respiratory rate 16, blood pressure 163/89, oxygen saturation 95% on room air. GENERAL: Patient is well nourished, well developed, in no acute distress. She appears nontoxic. HEENT: There is no scleral icterus, conjunctival injection, or conjunctival petechiae. Oropharynx shows moist mucous membranes with no thrush. There is no nasal discharge. No sinus tenderness. NECK: Supple without palpable lymphadenopathy or thyromegaly. CHEST: Clear to auscultation bilaterally without adventitious sounds. The respiratory effort is normal. CARDIOVASCULAR: Regular rate and rhythm without murmurs, gallops, or rubs. ABDOMEN: Soft, mildly tender to palpation diffusely, distended. No bowel sounds are present. Surgical incisions are dressed postoperatively with minimal blood on superior dressing; MARY drain shows serous output. MUSCULOSKELETAL: No cyanosis, clubbing, or edema. SKIN: No rashes noted. No stigmata of endocarditis. Skin is warm and dry to touch. LYMPHATICS: No cervical or supraclavicular nodes. NEUROLOGIC: Patient is alert and interacts appropriately with examiner. Cranial nerves 2-12 are grossly intact. Sensation is grossly intact. Muscle tone and bulk are normal. LABORATORY DATA: White blood cell count 18.7, hematocrit 39.2, platelets 464, neutrophils 84%. Serum creatinine is 0.7, AST 33, ALT 65, bilirubin 0.3, alkaline phosphatase 102. Operative Gram stain showing GPCs in a chain; growth of gram-positive cocci and gram-negative norma with further identification pending. CT scan of the abdomen and pelvis is outlined above which was reviewed and interpreted by me with Radiology today. IMPRESSION: Diverticulitis complicated by diverticular abscess, status post open incision and drainage. Cultures are showing polymicrobial growth consistent with enteric tia. Early growth of the gram-positive coccus is suggestive of a microaerophilic streptococcal species. This does not suggest enterococcus currently. Further identification and susceptibility testing are pending. RECOMMENDATIONS: 1. We will change ertapenem to ceftriaxone and metronidazole. If the streptococcal species is a microaerophilic streptococcal species, ceftriaxone will provide outstanding activity. 2. Follow up cultures with modification of antibiotics accordingly. 3. Advised patient that metronidazole and alcohol cannot be combined. 4. Follow clinical response to above measures over time. Thank for this consultation. We will continue to follow the patient with you. /[id number]/MODL MTDD
[2018-03-04 06:13] LABS: PLATELET COUNT 414 10^3/uL (150-400)
[2018-03-04] MEDS: ACETAMINOPHEN 500 MG TAB PO SCH ×3 (06:32→21:02)
[2018-03-04] MEDS: TIMOLOL 0.5% 15 ML OPHT.BTL EACHEYE SCH ×2 (08:26→21:02)
[2018-03-04] MEDS: POTASSIUM Cl (KCl) 10 MEQ in D5W 1/2 NS 1,000 ML IV SCH (08:27)
[2018-03-04] MEDS: DORZOLAMIDE 2% OPTH DROPS EACHEYE SCH ×2 (08:27→21:02)
--- NOTE | 2018-03-04 08:31 | SOAPPROG ---
KAREN Progress Note Assessment/Plan: Assessment/Plan: 57 Y F s/p surgical drainage of diverticular abscesses x 2. WBC's trending down. Afebrile. Advance to clears today. Factor V Leiden. On ppx lovenox. On ceftriaxone and flagyl. Appreciate hospitalist and ID input. Seen and examined with Dr. Collins. May need colectomy down the road. S: feels so much better she says. passing some gas. pain vastly improved. O: alert, nad ncat, mmm chest clear rrr abd soft, irena drains in place, +BS 03/04/18 08:29 Objective: Vital Signs Temp Pulse Resp BP Pulse Ox 36.5 C 70 18 148/91 H 93 03/04/18 04:00 03/04/18 04:00 03/04/18 04:00 03/04/18 04:00 03/04/18 04:00 Microbiology 03/02/18 11:30 Gram Stain - Final Other - Eswab 03/02/18 11:28 Gram Stain - Final Other - Eswab Laboratory Results 03/04/18 05:23 03/03/18 04:50 03/03/18 03/04/18 03/05/18 05:59 05:59 05:59 Intake Total 2370 1140 1223 Output Total 1210 110 25 Balance 1160 1030 1198 ICD10 Worksheet Patient Problems: Problems Problem Status Onset Diverticulitis of intestine with perforation and abscess Acute
[2018-03-04] MEDS: ENOXAPARIN 40 MG/0.4 ML SYR SC SCH (08:37)
--- NOTE | 2018-03-04 11:45 | PCMIDPN ---
Assessment/Plan: Assessment: Diverticulitis in the sigmoid colon with 2 diverticular abscesses status post drainage operatively. Operative cultures are growing Streptococcus intermedius as well as Citrobacter amalonaticus. Patient is being covered empirically with ceftriaxone and metronidazole. We will follow the sensitivity panels of the isolates to ensure that this is adequate coverage. Long discussion with the patient today about the likely need for her to have a semi elective sigmoid colon removal of the area that is affected with diverticulosis. This would be better done once the majority of the inflammation is alleviated. Plan: 1. Continue IV ceftriaxone and metronidazole. 2. Follow up on sensitivity panels of the 2 isolates. 3. Follow surgical recommendations Subjective: Patient is resting comfortably in her hospital bed. She has many questions relating to the fluid from her abdominal drains as well as the future course of treatment. She seems to be tolerating the antibiotics well without significant rash or diarrhea. States that she is feeling better. Objective: Ceftriaxone # 1 Metronidazole # 1 Vital Signs Temp Pulse Resp BP Pulse Ox 36.8 C 78 16 152/97 H 94 03/04/18 08:00 03/04/18 08:00 03/04/18 08:00 03/04/18 08:00 03/04/18 08:00 Microbiology 03/02/18 11:30 Gram Stain - Final Other - Eswab 03/02/18 11:28 Gram Stain - Final Other - Eswab Laboratory Results 03/04/18 05:23 03/03/18 04:50 03/03/18 03/04/18 03/05/18 05:59 05:59 05:59 Intake Total 2370 1140 1223 Output Total 1210 110 525 Balance 1160 1030 698 - Physical Exam General Appearance: WD/WN, alert, no apparent distress, non-toxic Respiratory: lungs clear, normal breath sounds, No respiratory distress Cardiac/Chest: regular rate, rhythm, No tachycardia Abdomen: non-tender, soft, other (2 abdominal drains with serosanguineous fluid in MARY bulbs.), No mass Skin: normal color, warm/dry, No rash Neuro/Psych: alert, normal mood/affect, oriented x 3 ICD10 Worksheet Patient Problems: Problems Problem Status Onset Diverticulitis of intestine with perforation and abscess Acute
--- NOTE | 2018-03-04 14:43 | HOSPPROG ---
Hospitalist Progress Note Assessment/Plan: * Acute diverticulitis with abscess -Currently on IV ceftriaxone, IV flagyl - ID following, appreciate input * Intra-abdominal abscess x 2 -location not amenable to percutaneous drainage -s/p OR with Dr. Coleman on 03/03, cultures pending * Sepsis as evidenced by leukocytosis and tachycardia -follow WBC closely, improved from 18.6 to 13.0 this AM * h/o DVT with + Factor V Leiden - Continue ppx Lovenox Subjective: Patient reports significant improvement in abdominal pain this AM Objective: Vital Signs Temp Pulse Resp BP Pulse Ox 36.8 C 67 16 137/88 H 93 03/04/18 12:00 03/04/18 12:00 03/04/18 12:00 03/04/18 12:00 03/04/18 12:00 Microbiology 03/02/18 11:28 Gram Stain - Final Other - Eswab 03/02/18 11:30 Gram Stain - Final Other - Eswab Laboratory Results 03/04/18 05:23 03/03/18 04:50 03/03/18 03/04/18 03/05/18 05:59 05:59 05:59 Intake Total 2370 1140 1223 Output Total 6876 318 0580 Balance 1160 1030 98 - Physical Exam Constitutional: no apparent distress Eyes: PERRL Ears, Nose, Mouth, Throat: moist mucous membranes Cardiovascular: regular rate and rhythym Respiratory: no respiratory distress Gastrointestinal: tenderness Skin: warm Neurologic: AAOx3 Psychiatric: interacting appropriately ICD10 Worksheet Patient Problems: Problems Problem Status Onset Diverticulitis of intestine with perforation and abscess Acute
[2018-03-04] MEDS: KETOROLAC 30 MG/1 ML SDV IVP PRN (19:54)
[2018-03-04] MEDS: LATANOPROST 0.005% 2.5 ML OPHT DROPS EACHEYE SCH (21:13)
[2018-03-05 06:09] LABS: PLATELET COUNT 457 10^3/uL (150-400)
[2018-03-05] MEDS: ACETAMINOPHEN 500 MG TAB PO SCH ×3 (06:17→21:59)
[2018-03-05] MEDS: TIMOLOL 0.5% 15 ML OPHT.BTL EACHEYE SCH ×2 (08:07→19:57)
[2018-03-05] MEDS: DORZOLAMIDE 2% OPTH DROPS EACHEYE SCH ×2 (08:07→19:57)
[2018-03-05] MEDS: ENOXAPARIN 40 MG/0.4 ML SYR SC SCH (08:08)
[2018-03-05] MEDS: ONDANSETRON 4 MG/2 ML VIAL IVP PRN (10:10)
[2018-03-05] MEDS ORDERED: NS 1,000 ML IV ONE (11:50)
[2018-03-05] MEDS ORDERED: ALTEPLASE 2 MG VIAL IVP PRN (11:52)
[2018-03-05] MEDS ORDERED: IOPAMIDOL (ISOVUE 370) 100 ML BTL IV ONE (11:55)
--- NOTE | 2018-03-05 11:58 | SOAPPROG ---
SOAP Progress Note Assessment/Plan: 03/03/18 08:10 POD#1 Assessment: Feels much better, Passing gas and stool, Drains serous, +/- BS, WBC up slightly as expected. Plan: Continue NPO Lovenox to start this morning 03/05/18 11:52 Called for stat team response for hypotension. lungs clear Had some bloody stool (old, on lovenox), POC HB down Drains - clearing CT abdomen STAT IMPRESSION: Need to confirm POC HB, Hypotension possibly due to GI Bleed due to lovenox/diverticulitis, Possibly due to bradycardia, Doubt sepsis, IN w/u in progress. Will place central line for IV access Subjective: no complaints Objective: Vital Signs Temp Pulse Resp BP Pulse Ox 36.8 C 78 20 145/92 H 98 03/05/18 11:26 03/05/18 11:26 03/05/18 11:26 03/05/18 07:36 03/05/18 11:26 Microbiology 03/02/18 11:30 Gram Stain - Final Other - Eswab 03/02/18 11:28 Gram Stain - Final Other - Eswab Laboratory Results 03/05/18 05:30 03/03/18 04:50 03/04/18 03/05/18 03/06/18 05:59 05:59 05:59 Intake Total 1140 1723 Output Total 110 1850 200 Balance 1030 -127 -200 - Time Spent With Patient Time Spent With Patient: 35 - Pending Discharge Pending Discharge Within 24 Hours: No Pending Discharge Within 48 Hours: No Physical Exam - Physical Exam General Appearance: WD/WN, alert, no apparent distress Respiratory: lungs clear, normal breath sounds Cardiac/Chest: regular rate, rhythm Abdomen: non-tender, soft, distended, other (incison clean and dry) Pelvic Exam: deferred Rectal: deferred Skin: normal color, warm/dry Extremities: normal range of motion Neuro/Psych: no motor/sensory deficits, alert, normal mood/affect, oriented x 3 ICD10 Worksheet Patient Problems: Problems Problem Status Onset Diverticulitis of intestine with perforation and abscess Acute
[2018-03-05 12:15] LABS: PLATELET COUNT 515 10^3/uL (150-400)
--- NOTE | 2018-03-05 12:29 | ASMTCMCOM ---
CM Note CM Note Notes: Pt was noted to have a large bloody BM. Pt is diaphoretic and low blood pressure due to possible lovenox. STAT team was called overhead. CM will follow for d/c needs. Date Signed: 03/05/2018 12:28 PM Electronically Signed By:MUNA Houston
--- NOTE | 2018-03-05 12:40 | POSTOPPROG ---
Post Op Note Date of Operation: 03/05/18 Surgeon: Shankar Coleman Anesthesia: Local (Specify) (5cc 1% liodocaine) Pre-op Diagnosis: inadequate venous access Post-op Diagnosis: inadequate venous access Indication: inadequate venous access Procedure: placement of right subclavian central line for IV access Findings: inadequate venous access Inf/Abcess present in the surg proc area at time of surgery?: No EBL: Minimal Total fluids administered: 1000cc bolus Complications: none Specimen(s): none
[2018-03-05] MEDS ORDERED: PANTOPRAZOLE SODIUM 40 MG VIAL IVP SCH (12:45)
[2018-03-05] MEDS ORDERED: NS 500 ML IV ONE (12:53)
[2018-03-05] MEDS: NS 1,000 ML IV SCH ×2 (12:58→23:24)
--- NOTE | 2018-03-05 13:08 | HOSPPROG ---
Hospitalist Progress Note Assessment/Plan: Hypotension - Became acutely hypotensive this AM, had bloody bowel movement earlier this AM - H/H dropped from 11.2 yesterday to 8.4 this AM - S/p 1.5 L NS bolus with improvement - CT A/P ordered to evaluate diverticular abscess as source of bleed - GI consulted for possible UGIB given dark stools, plan for EGD - Continue IVF to maintain - LA pending Acute Blood Loss Anemia - Hypotension as above with bloody BM and drop in H/H - Management of hypotension as above - GI to perform EGD - Will repeat CBC at 16:00, continue to monitor closely - Transfuse H/H <7/20 Acute diverticulitis with abscess - Currently on IV ceftriaxone, IV flagyl - ID following, appreciate input Intra-abdominal abscess x 2 - location not amenable to percutaneous drainage - s/p OR with Dr. Coleman on 03/03, cultures pending - CT A/P as above, will f/u results Sepsis as evidenced by leukocytosis and tachycardia -follow WBC closely, increased from 13.0 to 14.3 this AM H/o DVT with + Factor V Leiden - Holding ppx Lovenox Subjective: Patient had episode of hypotension with 2 bloody bowel movements this morning, she reports feeling weak, nauseous, and diaphoretic Objective: Vital Signs Temp Pulse Resp BP Pulse Ox 36.4 C 83 25 H 103/74 92 03/05/18 12:47 03/05/18 12:47 03/05/18 12:47 03/05/18 12:47 03/05/18 12:47 Microbiology 03/02/18 11:30 Gram Stain - Final Other - Eswab 03/02/18 11:28 Gram Stain - Final Other - Eswab Laboratory Results 03/05/18 11:45 03/05/18 11:45 03/04/18 03/05/18 03/06/18 05:59 05:59 05:59 Intake Total 1140 1723 Output Total 110 1850 800 Balance 1030 -127 -800 - Physical Exam Constitutional: uncomfortable Eyes: PERRL Ears, Nose, Mouth, Throat: moist mucous membranes Cardiovascular: regular rate and rhythym Respiratory: reduced air movement Gastrointestinal: tenderness Genitourinary: No dias in urethra Skin: normal color Neurologic: AAOx3 Psychiatric: interacting appropriately ICD10 Worksheet Patient Problems: Problems Problem Status Onset Diverticulitis of intestine with perforation and abscess Acute
[2018-03-05] MEDS ORDERED: SUCCINYLCHOLINE CHLORIDE 200 MG/10 ML SYR IVP ONE (13:54)
[2018-03-05] MEDS ORDERED: fentaNYL 100 MCG/2 ML INJ ONE (13:54)
[2018-03-05] MEDS ORDERED: ROCURONIUM 50 MG/5 ML VIAL ONE (13:54)
[2018-03-05] MEDS ORDERED: PROPOFOL/EMULSION 500 MG/50 ML BOTTLE IV ONE (13:55)
--- NOTE | 2018-03-05 13:55 | GOP ---
DATE OF OPERATION: 03/05/2018 SURGEON: Shankar Coleman MD ANESTHESIA: 5 cc of 1% Xylocaine. PREOPERATIVE DIAGNOSIS: Inadequate venous access. POSTOPERATIVE DIAGNOSIS: Inadequate venous access. PROCEDURE PERFORMED: Placement of a right subclavian central line for venous access. FINDINGS: Inadequate venous access. INDICATIONS: Inadequate venous access. DESCRIPTION OF PROCEDURE: The patient is placed in the Trendelenburg position. This is done in conjunction with a rapid response event. The patient verbally agrees to the procedure. The right chest is carefully prepped and draped. A sterile barrier technique is used. The skin is anesthetized. The thin wall needle is carefully passed. Subclavian vein is accessed on the 1st pass. It is rotated 90 degrees so the bevel is facing inferiorly. The guidewire is carefully passed centrally. The needle and syringe are removed over the guidewire. The skin is incised. A dilator is passed. A triple-lumen catheter, which has had the white and blue ports secured with a Heplock adapter and flushed, is now passed. This is passed to 17 cm. The guidewire is removed. A heplock adapter is placed on the third (brown) lumen. that port is also flushed. The line is secured at the skin level with a suture. A Biopatch is placed. The 2nd suture is to secure the line on the anterior chest wall. A Tegaderm is positioned. A chest x-ray shows it to be in good position without pneumothorax. /[id number]/MODL MTDD
[2018-03-05] MEDS ORDERED: PANTOPRAZOLE SODIUM 40 MG VIAL IVP ONE (14:29)
--- NOTE | 2018-03-05 14:29 | GIREPORT ---
Formerly [facility] Surgical Services - Endoscopy Department Patient Name: TERE CUNNINGHAM Procedure Date: 03/05/2018 1:54 PM Patient Type: Inpatient Attending MD/ ER Physician: Fernando Weaver MD Procedure: Upper GI endoscopy Indications: Hematemesis, Hematochezia, Melena Providers: Fernando Weaver MD Medicines: Propofol per Anesthesia Complications: No immediate complications. Description of Procedure: After obtaining informed consent, the endoscope was passed under direct vision. Throughout the procedure, the patient's blood pressure, pulse, and oxygen saturations were monitored continuously. The Endoscope was intro duced through the mouth, and advanced to the second part of duodenum. [facility] was accomplished without difficulty. The patient tolerated th e procedure well. Moderate Sedation: Propofol per anesthesia Findings: The examined esophagus was normal. The entire examined stomach was normal. Biopsies were taken with a cold forceps for histology. One non-obstructing non-bleeding cratered duodenal ulcer with pigmented material was found in the first portion of the duodenum. The lesion was 10 mm in largest dimension. Estimated Blood Loss: Estimated blood loss: none. Post Op Diagnosis: - Normal esophagus. - Normal stomach. Biopsied. - One non-obstructing non-bleeding duodenal ulcer (medially located) wi th pigmented material. Recommendation: - Clear liquid diet. - Avoid NSAIDs, Lovenox, Anti-coagulation - Give Protonix (pantoprazole): initiate therapy with 80 mg IV bolus, t hen 8 mg/hr IV by continuous infusion. - Serial H and H and monitor for signs and symptoms of bleeding. - Thank you for allowing me to participate in the care of your patient. Attending Participation: I personally performed the entire procedure. Fernando Weaver MD Fernando Weaver MD 03/05/2018 2:28:54 PM This report has been signed electronicallyStkrista Weaver MD Number of Addenda: 0 Note Initiated On: 03/05/2018 1:54 PM [email or web address]
[2018-03-05] MEDS ORDERED: NS 500 ML IV PRN (14:34)
[2018-03-05] MEDS ORDERED: ONDANSETRON 4 MG/2 ML VIAL IVP PRN (14:34)
[2018-03-05] MEDS ORDERED: NALOXONE HCL 0.4 MG/ML INJ IVP PRN (14:34)
[2018-03-05] MEDS ORDERED: fentaNYL 100 MCG/2 ML INJ IVP PRN (14:34)
--- NOTE | 2018-03-05 14:34 | PDANEPAE ---
ANE Past Medical History - Cardiovascular History Hx Hypertension: No Hx Arrhythmias: No Hx Chest Pain: No Hx Coronary Artery / Peripheral Vascular Disease: No Hx CHF / Valvular Disease: No Hx Palpitations: No - Pulmonary History Hx COPD: No Hx Asthma/Reactive Airway Disease: No Hx Recent Upper Respiratory Infection: No Hx Oxygen in Use at Home: No Hx Sleep Apnea: No Sleep Apnea Screening Result - Last Documented: Negative - Neurologic History Hx Cerebrovascular Accident: No Hx Seizures: No Hx Dementia: No - Endocrine History Hx Diabetes: No Hypothyroid: No Hyperthyroid: No Obesity: no - Renal History Hx Renal Disorders: No - GI History GERD: no Hx Gastrointestinal Disorders: Yes Gastrointestinal History Comment: Diverticulosis. Now has diverticular abscess x 2 - Chronic Pain History Chronic Pain: No ANE Review of Systems Review of Systems: ANE Patient History - Allergies Allergies/Adverse Reactions: No Known Allergies Allergy (Verified 02/27/18 19:43) - Home Medications Home Medications: Aspirin EC [Aspirin EC 81 mg (*)] 81 mg PO HS 02/27/18 [Last Taken 02/26/18] Dorzolamide 2% [Trusopt 2% (*)] 1 drop EACHEYE BID 02/27/18 [Last Taken 21:00] Latanoprost 0.005% [Xalatan 0.005% (*)] 1 drop EACHEYE HS 02/27/18 [Last Taken 02/27/18 21:00] Timolol 0.5% [TIMOPTIC 0.5% (*)] 1 drop EACHEYE BID 02/27/18 [Last Taken 21:00] - NPO status NPO Since - Liquids (Date): 03/02/18 NPO Since - Liquids (Time): 00:00 NPO Since - Solids (Date): 03/02/18 NPO Since - Solids (Time): 00:00 - Smoking Hx Smoking Status: Never smoked ANE Labs/Vital Signs - Labs Result Diagrams: 03/05/18 11:45 03/05/18 11:45 - Vital Signs Blood Pressure: 103/74 Heart Rate: 83 Respiratory Rate: 25 O2 Sat (%): 92 Height: 162.56 cm Weight: 67.9 kg ANE Physical Exam - Airway Neck exam: decreased ROM Mallampati Score: Class 2 Mouth exam: normal dental/mouth exam - Pulmonary Pulmonary: no respiratory distress - Cardiovascular Cardiovascular: regular rate and rhythym - ASA Status ASA Status: III ANE Anesthesia Plan Anesthesia Plan: general endotracheal anesthesia Urgent/Emergent Case: Anes eval completed preop but documented later for safe timely pt care
[2018-03-05] MEDS: SUCRALFATE 1 GM TAB PO SCH ×3 (15:56→23:21)
[2018-03-05] MEDS: PANTOPRAZOLE SODIUM 40 MG VIAL IVP SCH ×2 (16:21→19:56)
--- NOTE | 2018-03-05 16:42 | GCON ---
CRITICAL CARE CONSULT. DATE OF CONSULTATION: 03/05/2018 HISTORY OF PRESENT ILLNESS: This patient is a 57-year-old female who has a history of deep vein thro mbosis and Factor 5 Leiden deficiency, who was admitted on February 27 with abdominal pain for about 12 days. Her workup included a CT scan showing pelvic abscesses thought to be related to diverticuliti s. She was treated initially with ciprofloxacin and Flagyl as well as IV fluids. Surgery was consul steven. Her antibiotics were changed to Invanz. Interventional Radiology was consulted as well but the abscesses were thought to be too large for percutaneous drainage and so she underwent a laparotomy i n the OR on 03/02/2018, where adhesions were lysed. Fluid was drained. A primrose drain was placed as well as a MARY to other areas of serous fluid. There were no obvious complications from the surgery . She was seen by infectious disease on the , who recommended ceftriaxone and Flagyl. She remai jeremías on Lovenox prophylaxis. She was stable on the , but earlier this morning had an episode of b right red blood per rectum and possible melena associated with brief hypotension. She was given, I b elieve 1.5 L of fluid, which resolved the blood pressure issue. The CT scan is still pending at this time. GI was consulted in case it was an upper GI source and the EGD showed a possible duodenal ulc er, but this was not bleeding and not thought to be the cause. CT scan is still pending. She feels relatively well. She denied any abdominal pain and felt that she was actually recovering fairly well and had no shortness of breath, chest pain, headaches, or syncope. REVIEW OF SYSTEMS: Otherwise negative. PAST MEDICAL HISTORY: Includes: 1. Factor 5 Leiden as described. 2. DVT. 3. Glaucoma. 4. Obesity. PAST SURGICAL HISTORY: Includes partial hysterectomy and a current laparotomy. SOCIAL HISTORY: She is a nonsmoker. No recreational drug use. FAMILY HISTORY: Includes lupus and factor 5 Leiden deficiency. CURRENT MEDICATIONS: Include Tylenol, ceftriaxone, Trusopt, Dilaudid, Xalatan, Flagyl, Zofran, Che[place] nix, scopolamine, normal saline, Carafate, Timoptic. PHYSICAL EXAM: VITAL SIGNS: She had a blood pressure 111/77, heart rate 83, respirations 18, oxygen saturation 99%. GENERAL: She was overweight and lying in bed, but in no apparent distress and able to speak in full sentences without using accessory muscles for breathing. HEENT: Pupils equally round and reactive to light, nonicteric and noninjected. Mucous membranes moist without erythema or exuda te. NECK: Supple without adenopathy or jugular vein distention. LUNGS: Breath sounds were clear to auscultation bilaterally without wheezes, rubs or rales. HEART: Regular rate and rhythm without mu rmurs, rubs, gallops. ABDOMEN: By and large, soft, nondistended, and nontender except in the area wh ere her incision where she had no guarding and no rebound and had normoactive bowel tones. EXTREMITI ES: No clubbing, cyanosis, or edema. NEUROLOGIC: Nonfocal, including cranial nerves, deep tendon re flexes. SKIN: Warm and dry without diaphoresis or rash. OBJECTIVE DATA: Includes a white count of 18.6, a hematocrit of 25.4, platelets of 515. Basic metab olic panel is essentially normal. Troponin 0.012. Lactate is pending. Results of EGD as described. ASSESSMENT AND PLAN: 1. Brief hypotension with bright red blood. I suspect this is probably a lower gastrointestinal carlita rce, particularly given the negative esophagogastroduodenoscopy as described above. She seems to be hemodynamically stable at this time, and a CT scan is still pending. I agree wholeheartedly with ser ial H and H and would have a low threshold for blood transfusion at this point. I do not believe mauricio t her hypotension is cardiac in origin nor do I believe that it is sepsis, though her white count is slightly elevated, nor do I suspect adrenal insufficiency and she has not required pressors today. 2. Anemia. This is also related to above. As I said, will have low threshold for transfusion, part icularly if her blood pressure becomes problematic. 3. Diverticular abscesses. She is on ceftriaxone and Flagyl. Cultures from the 12th showed Strepto coccus intermedius and Citrobacter which has been sensitive to ceftriaxone. She seems to be relative ly stable from that perspective. 4. Factor 5 Leiden deficiency with a history of deep vein thrombosis. We certainly have to hold Joan enox for now but continue to give her sequential compression devices and resume that as soon as we fe el the bleeding has been stabilized. /[id number]/MODL
[2018-03-05] MEDS: ERTAPENEM 1 GM in NS 100 ML IV SCH (16:45)
--- NOTE | 2018-03-05 17:01 | PCMIDPN ---
Assessment/Plan: Assessment/Plan: * Diverticular abscess status post open drainage: Cultures with growth of Streptococcus intermedius and Citrobacter amalonaticus. Will change ceftriaxone and metronidazole to ertapenem as this Citrobacter species has potential for inducible beta lactamase production. Favor this over fluoroquinolone as fluoroquinolone with less activity versus Streptococcus intermedius. Await repeat CT scan to assess adequacy of drainage. * Leukocytosis: May be in part related to stress response from upper GI bleed versus residual component from intra-abdominal abscess which will be further assessed by CT scan. 03/05/18 16:58 03/05/18 16:58 03/05/18 17:00 Subjective: Patient transferred to ICU for upper GI bleed with endoscopy showing duodenal ulcer. Abdominal pain less prominent. Objective: Vital Signs Temp Pulse Resp BP Pulse Ox 37.0 C 85 17 126/71 H 99 03/05/18 16:00 03/05/18 16:00 03/05/18 16:00 03/05/18 16:00 03/05/18 16:00 Microbiology 03/02/18 11:28 Gram Stain - Final Other - Eswab 03/02/18 11:30 Gram Stain - Final Other - Eswab Laboratory Results 03/05/18 11:45 03/05/18 11:45 03/04/18 03/05/18 03/06/18 05:59 05:59 05:59 Intake Total 1140 1723 600 Output Total 110 1850 800 Balance 1030 -127 -200 Ceftriaxone # 2 Metronidazole # 2 Operative cultures with growth of Streptococcus intermedius and Citrobacter amalonaticus - Physical Exam General Appearance: alert, no apparent distress, non-toxic EENT: No scleral icterus, No thrush Respiratory: lungs clear, No respiratory distress Cardiac/Chest: regular rate, rhythm Abdomen: non-tender, other (Staple line intact without erythema or drainage), No distended Skin: No rash Neuro/Psych: No confused ICD10 Worksheet Patient Problems: Problems Problem Status Onset Diverticulitis of intestine with perforation and abscess Acute
--- NOTE | 2018-03-05 17:06 | GCON ---
REFERRING PHYSICIAN: Shankar Coleman MD CHIEF COMPLAINT: Hematochezia. HISTORY OF PRESENT ILLNESS: I have been asked to see this very pleasant 57-year -old woman in consultation by Dr. Coleman for GI bleeding. The patient was admitted to the hospital with diverticulitis and a diverticular abscess. She underwent surgery and underwent abdominal exploration with drainage of 2 intra- abdominal abscesses. The patient has been on antibiotics. She was noted to have a drop in hematocrit from 37 to 25. She had an episode of nausea this morning . She went into the bathroom and had two episodes of hematemesis. She has also been passing some maroonish blood per rectum and reported black stool per rectum. She denies any significant abdominal pain or discomfort. CT scan on the did show sigmoid diverticulitis with 2 pelvic abscesses. She was somewhat hypotensive with passage of blood. She had a normal creatinine and BUN. I was asked to see patient for further evaluation of GI bleeding. The patient does have a history of factor V Leiden. She takes aspirin on a regular basis. She does have a prior history of blood clots. She was started on Lovenox while in the hospital and had been taking a daily aspirin prior to admission. PAST MEDICAL HISTORY: Remarkable for hysterectomy, history of DVT, factor V Leiden mutation, glaucoma. ALLERGIES: No known drug allergies. SOCIAL HISTORY: Nonsmoker, nondrinker. . Lives with her . Owns a business. FAMILY HISTORY: Remarkable for Mother with lupus. Father with coronary artery disease. Sisters with Factor V Leiden and glaucoma. Otherwise, negative as it pertains to chief complaint. MEDICATIONS: Include ceftriaxone, metronidazole, Zofran, Protonix, Carafate, Timoptic. REVIEW OF SYSTEMS: Negative for 10 systems other than mentioned in HPI. PHYSICAL EXAM: GENERAL: A very pleasant woman in no acute distress. VITAL SIGNS: 103/74, pulse of 83, respiratory rate 20, 92% on 2 L nasal cannula. Afebrile at 36.4. HEENT: Normocephalic, atraumatic. EOMI. Mucous membranes moist. NECK: Supple. No cervical lymphadenopathy. No thyromegaly. LUNGS: Clear. CARDIAC: Normal S1, S2. Without murmur. ABDOMEN: Benign, soft, nontender. Normal bowel sounds. EXTREMITIES: Without clubbing, cyanosis, edema. NEURO: Nonfocal. SKIN: Warm, dry, intact. PSYCH: Alert and oriented x3 with normal affect. LABORATORY DATA: White count of 18.66, hemoglobin of 8.4, hematocrit 25.4, platelets of 515,000. Serum sodium 142, potassium 3.9, chloride 107, BUN of 19 , creatinine 0.6. IMPRESSION: A 57-year-old woman with diverticulitis and diverticular abscess in the pelvis, status post exploratory laparotomy with drainage. The patient now with hematochezia, melena and hematemesis. GI bleeding in setting of recent diverticultis. With episode of hematemesis will recommend urgent EGD to evaluate for a brisk upper gastrointestinal bleed. RECOMMENDATIONS: N.p.o. Serial H and H. The patient was started on IV Protonix. We will proceed with urgent/emergent upper endoscopy to evaluate for significant upper GI bleed. /[id number]/MODL MTDD
[2018-03-05 17:23] LABS: PLATELET COUNT 433 10^3/uL (150-400)
[2018-03-05 17:42] LABS: INR 1.47 (0.83-1.16)
[2018-03-05] MEDS: LATANOPROST 0.005% 2.5 ML OPHT DROPS EACHEYE SCH (19:57)
[2018-03-06] MEDS: PANTOPRAZOLE SODIUM 40 MG VIAL IVP SCH ×4 (01:53→20:21)
[2018-03-06 03:27] LABS: PLATELET COUNT 365 10^3/uL (150-400)
[2018-03-06] MEDS: ACETAMINOPHEN 500 MG TAB PO SCH ×3 (05:04→20:22)
[2018-03-06] MEDS: SUCRALFATE 1 GM TAB PO SCH ×4 (05:05→23:50)
[2018-03-06] MEDS: ERTAPENEM 1 GM in NS 100 ML IV SCH (07:59)
[2018-03-06] MEDS: TIMOLOL 0.5% 15 ML OPHT.BTL EACHEYE SCH ×2 (08:01→20:22)
[2018-03-06] MEDS: DORZOLAMIDE 2% OPTH DROPS EACHEYE SCH ×2 (08:01→20:23)
--- NOTE | 2018-03-06 08:23 | SOAPPROG ---
SOAP Progress Note Assessment/Plan: Assessment: 57 year old woman with GI bleed. Recent surgery for pelvic abbesses with drain placement due to diverticulitis. GI bleed with large DU and on Lovenox. Patient stable in ICU, without signs or symptoms of acute bleeding. Tolerating clears. Receiving 2nd unit of PRBC's Plan: 1. Serial H and H 2. If Hct after second transfusion stable advance to regular diet. 3. Continue on PPI 4. Will review path on gastric biopsies 03/06/18 08:37 Subjective: CC: Diverticulitis, GI bleed Passing old black stool. Feels well, no abdominal pain Objective: Vital Signs Temp Pulse Resp BP Pulse Ox 36.7 C 95 15 127/73 H 95 03/06/18 04:00 03/06/18 06:00 03/06/18 06:00 03/06/18 06:00 03/06/18 06:00 Microbiology 03/02/18 11:28 Gram Stain - Final Other - Eswab 03/02/18 11:30 Gram Stain - Final Other - Eswab Laboratory Results 03/06/18 03:00 03/06/18 03:00 03/05/18 03/06/18 03/07/18 05:59 05:59 05:59 Intake Total 1723 2575 Output Total 1850 1015 200 Balance -127 1560 -200 PT 18.0 SEC (12.0-15.0) H 03/05/18 16:30 INR 1.47 (0.83-1.16) H 03/05/18 16:30 Generic Name Dose Route Start Last Admin Trade Name Janesq PRN Reason Stop Dose Admin Acetaminophen 1,000 mg 02/28/18 06:00 03/06/18 07:59 Tylenol PO 08/27/18 05:59 1,000 mg Q8HRS FELICE Administration Alteplase, Recombinant 2 mg 03/05/18 11:52 Cathflo Activase IVP 09/01/18 11:51 PRN PRN Per PICC line policy Dorzolamide HCl 1 drops 02/28/18 09:00 03/06/18 08:01 Trusopt 2% EACHEYE 08/27/18 08:59 1 drop BID FELICE Administration Hydromorphone HCl 0.2 - 0.4 mg 03/02/18 12:12 Dilaudid IVP 03/11/18 12:58 Q1H PRN Pain, Severe Unable to Take PO Sodium Chloride 1,000 mls @ 100 mls/hr 03/05/18 13:00 03/05/18 23:24 Ns IV 09/01/18 12:59 1,000 mls CONT FELICE Administration Ertapenem 1 gm/ Sodium 100 mls @ 200 mls/hr 03/05/18 16:30 03/06/18 07:59 Chloride IV 04/04/18 16:29 100 mls DAILY FELICE Administration Protocol Latanoprost 1 drops 02/28/18 21:00 03/05/18 19:57 Xalatan 0.005% EACHEYE 08/27/18 20:59 1 drop HS FELICE Administration Nitroglycerin 0.4 mg 02/28/18 08:47 Nitrostat SL 08/27/18 08:46 Q5M PRN Chest Pain Ondansetron HCl 4 mg 02/27/18 22:20 03/05/18 10:10 Zofran IVP 08/26/18 22:19 4 mg Q4HRS PRN Administration Nausea/Vomiting, Can't Take PO Pantoprazole Sodium 40 mg 03/05/18 15:00 03/06/18 08:00 Protonix IVP 09/01/18 14:59 40 mg Q6H FELICE Administration Scopolamine HBr 1 patch 02/28/18 21:00 03/03/18 21:55 Scopolamine Patch TD 08/27/18 20:59 1 patch Q72H FELICE Administration Sucralfate 1 gm 03/05/18 12:45 03/06/18 08:00 Carafate PO 09/01/18 12:44 1 gm Q6H FELICE Administration Timolol Maleate 1 drops 02/28/18 09:00 03/06/18 08:01 Timoptic 0.5% EACHEYE 08/27/18 08:59 1 drop BID FELICE Administration Discontinued Medications Generic Name Dose Route Start Last Admin Trade Name Freq PRN Reason Stop Dose Admin Acetaminophen 650 mg 02/27/18 22:20 02/27/18 23:15 Tylenol PO 08/26/18 22:19 650 mg Q4HRS PRN Administration Pain, Mild/Fever, Can Take PO Acetaminophen 500 mg 03/02/18 11:07 Tylenol PO 03/02/18 12:07 Q6HRS PRN PACU, Pain Mild Hydrocodone Bitart/Acetaminophen 1 - 2 tab 02/27/18 22:20 [place] 5/325 PO 03/09/18 22:19 Q4HRS PRN Pain, Moderate Able to Take PO Albuterol 3 ml 03/02/18 11:07 Proventil Neb IH 03/02/18 12:07 Q10M PRN PACU, Wheezing Bacitracin Confirm 03/02/18 12:04 03/02/18 18:37 Bacitracin Ointment Tube Administered 03/02/18 12:05 Not Given Dose 14.2 malachi TP .STK-MED ONE Dexamethasone Confirm 03/02/18 10:56 Decadron Injection Administered 03/02/18 10:57 Dose 4 mg .ROUTE .STK-MED ONE Dexamethasone Confirm 03/02/18 10:56 Decadron Injection Administered 03/02/18 10:57 Dose 4 mg .ROUTE .STK-MED ONE Enoxaparin Sodium 40 mg 02/28/18 17:37 02/28/18 18:06 Lovenox SC 02/28/18 17:38 40 mg ONCE ONE Administration Enoxaparin Sodium 40 mg 03/03/18 09:00 03/05/18 08:08 Lovenox SC 08/30/18 08:59 40 mg DAILY FELICE Administration Ephedrine Sulfate 25 mg 03/02/18 11:07 Ephedrine Sulfate IM 03/02/18 12:09 ONCE PRN PACU, Nausea/Vomiting Ephedrine Sulfate 10 mg 03/02/18 11:07 Ephedrine Sulfate IV 03/02/18 12:10 .Q5M PRN PACU, Hypotension Erythromycin 1,000 mg 02/28/18 16:00 02/28/18 22:36 Andi-Tab PO 03/01/18 00:01 Not Given Q4H FELICE Protocol Erythromycin 1,000 mg 02/28/18 20:00 03/01/18 06:32 Andi-Tab PO 03/01/18 04:01 1,000 mg Q4H FELICE Administration Protocol Fentanyl Confirm 03/02/18 10:33 Sublimaze Administered 03/02/18 10:34 Dose 100 mcg .ROUTE .STK-MED ONE Fentanyl 25 - 100 mcg 03/02/18 11:07 Sublimaze IVP 03/02/18 12:07 Q5M PRN PACU, IMMEDIATE Pain control Fentanyl Confirm 03/05/18 13:54 Sublimaze Administered 03/05/18 13:55 Dose 100 mcg .ROUTE .STK-MED ONE Fentanyl 25 - 100 mcg 03/05/18 14:34 Sublimaze IVP 03/05/18 15:34 Q5M PRN PACU, IMMEDIATE Pain control Hydromorphone HCl 0.2 - 0.4 mg 03/01/18 12:59 Dilaudid IVP 03/11/18 12:58 Q4HRS PRN Pain, Severe Unable to Take PO Hydromorphone HCl Confirm 03/02/18 10:56 Dilaudid Administered 03/02/18 10:57 Dose 2 mg .ROUTE .STK-MED ONE Hydromorphone HCl 0.1 - 0.4 mg 03/02/18 11:07 Dilaudid IVP 03/02/18 12:07 Q10M PRN PACU, PAIN Sodium Chloride 1,000 mls @ 0 mls/hr 02/27/18 19:50 02/27/18 20:02 Ns IV 02/27/18 19:51 1,000 mls EDNOW ONE Administration Protocol Wide Open Ceftriaxone Sodium/Dextrose 50 mls @ 100 mls/hr 02/27/18 21:33 02/27/18 21:53 Rocephin 1 Gm (Premix) IV 02/27/18 22:02 50 mls EDNOW ONE Administration Protocol Metronidazole/Sodium Chloride 100 mls @ 100 mls/hr 02/27/18 21:33 02/27/18 22 :35 Flagyl 500 Mg (Premix) IV 02/27/18 22:32 100 mls EDNOW ONE Administration Protocol Potassium Chloride/Sodium Chloride 1,000 mls @ 100 mls/hr 02/27/18 22:30 12/07 18:11 Ns W/ 20 Kcl/L IV 08/26/18 22:29 1,000 mls CONT FELICE Administration Ertapenem 1 gm/ Sodium 100 mls @ 200 mls/hr 02/28/18 09:00 Chloride IV 03/30/18 08:59 DAILY FELICE Protocol Piperacillin/Tazobactam/Dextrose 50 mls @ 100 mls/hr 02/28/18 06:00 02/28/18 05:52 Zosyn 3.375 Gm (Premix) IV 03/30/18 05:59 50 mls Q6HRS FELICE Administration Protocol Ertapenem 1 gm/ Sodium 100 mls @ 200 mls/hr 02/28/18 09:15 03/03/18 07:47 Chloride IV 03/30/18 09:14 100 mls DAILY FELICE Administration Protocol Potassium Chloride/Dextrose/Sod Cl 1,000 mls @ 100 mls/hr 03/01/18 07:00 02/06 05:14 D5w 1/2 Ns W/ 20 Kcl/L IV 08/28/18 06:59 1,000 mls CONT FELICE Administration Lactated Ringer's 1,000 mls @ 0 mls/hr 03/02/18 09:25 03/02/18 09:30 Lr IV 03/02/18 09:26 1,000 mls ONCE ONE Administration KVO Lactated Ringer's 500 mls @ 0 mls/hr 03/02/18 11:07 Lr IV 03/02/18 12:09 PRN PRN PACU, Nausea/Vomiting Post-Op Wide Open Lactated Ringer's 1,000 mls @ 100 mls/hr 03/02/18 12:30 03/02/18 23:35 Lr IV 08/29/18 12:29 1,000 mls CONT FELICE Administration Potassium Chloride 10 meq/ 1,000 mls @ 100 mls/hr 03/03/18 08:00 03/04/18 08: 27 Dextrose/Sodium Chloride IV 08/30/18 07:59 1,000 mls CONT FELICE Administration Ceftriaxone Sodium 2 gm/ 50 mls @ 100 mls/hr 03/04/18 09:00 03/05/18 08:08 Sodium Chloride IV 04/03/18 08:59 50 mls DAILY FELICE Administration Protocol Metronidazole/Sodium Chloride 100 mls @ 100 mls/hr 03/04/18 06:00 03/06/18 05 :04 Flagyl 500 Mg (Premix) IV 04/03/18 05:59 100 mls Q8HRS FELICE Administration Protocol Sodium Chloride 1,000 mls @ 3,000 mls/hr 03/05/18 11:50 03/05/18 14:36 Ns IV 03/05/18 12:09 1,000 mls ONCE ONE Administration Sodium Chloride 500 mls @ 1,500 mls/hr 03/05/18 12:53 03/05/18 12:59 Ns IV 03/05/18 13:12 500 mls ONCE ONE Administration Sodium Chloride 500 mls @ 0 mls/hr 03/05/18 14:34 Ns IV 03/05/18 15:34 PRN PRN PACU, Nausea/Vomiting Post-Op Wide Open Iopamidol Confirm 02/27/18 20:07 Isovue-370 Administered 02/27/18 20:08 Dose 100 ml IV .STK-MED ONE Iopamidol Confirm 03/01/18 12:15 Isovue-370 Administered 03/01/18 12:16 Dose 100 ml IV .STK-MED ONE Iopamidol Confirm 03/05/18 11:55 Isovue-370 Administered 03/05/18 11:56 Dose 100 ml IV .STK-MED ONE Ketorolac Tromethamine 30 mg 02/28/18 00:12 03/04/18 19:54 Toradol IVP 03/05/18 00:11 30 mg Q6HRS PRN Administration Pain, Moderate Ketorolac Tromethamine Confirm 03/02/18 11:58 Toradol Administered 03/02/18 11:59 Dose 30 mg .ROUTE .STK-MED ONE Labetalol HCl 5 - 10 mg 03/02/18 11:07 Trandate Injection IVP 03/02/18 12:07 Q10M PRN PACU, Hypertension Lidocaine HCl Confirm 03/02/18 10:44 Xylocaine-Mpf 2% Vial Administered 03/02/18 10:45 Dose 5 ml .ROUTE .STK-MED ONE Meperidine HCl 12.5 - 25 mg 03/02/18 11:07 Demerol IVP 03/02/18 12:09 Q10M PRN PACU, shivering/rigors Metoclopramide HCl 10 mg 03/02/18 11:07 03/02/18 12:44 Reglan Injection IVP 03/02/18 12:09 10 mg ONCE PRN Administration PACU, Nausea/Vomiting Metoclopramide HCl Confirm 03/02/18 12:43 Reglan Injection Administered 03/02/18 12:44 Dose 10 mg .ROUTE .STK-MED ONE Midazolam HCl 2 mg 03/02/18 10:27 03/02/18 10:32 Versed IVP 03/02/18 10:28 2 mg ONCALL ONE Administration Midazolam HCl Confirm 03/02/18 10:28 Versed Administered 03/02/18 10:29 Dose 2 mg .ROUTE .STK-MED ONE Morphine Sulfate 1 - 2 mg 02/28/18 08:46 Morphine IVP 03/10/18 08:45 Q1HR PRN Pain, Severe Naloxone HCl 0.1 mg 03/02/18 11:07 Narcan IVP 03/02/18 12:07 Q2M PRN PACU Resp Rate <10/min Naloxone HCl 0.1 mg 03/05/18 14:34 Narcan IVP 03/05/18 15:34 Q2M PRN PACU Resp Rate <10/min Neomycin Sulfate 1,000 mg 02/28/18 16:00 02/28/18 22:35 Neomycin Sulfate PO 03/01/18 00:01 Not Given Q4H FELICE Protocol Neomycin Sulfate 1,000 mg 02/28/18 20:00 03/01/18 06:33 Neomycin Sulfate PO 03/01/18 04:01 1,000 mg Q4H FELICE Administration Protocol Ondansetron HCl 4 mg 02/27/18 22:20 Zofran Odt PO 08/26/18 22:19 Q4HRS PRN Nausea/Vomiting, Use 1st Ondansetron HCl Confirm 03/02/18 10:59 Zofran Administered 03/02/18 11:00 Dose 4 mg .ROUTE .STK-MED ONE Ondansetron HCl 2 - 4 mg 03/05/18 14:34 Zofran IVP 03/05/18 15:34 Q10M PRN PACU, Nausea/Vomiting Oxycodone HCl 5 - 10 mg 03/02/18 11:07 Oxycodone Ir PO 03/02/18 12:07 Q4HRS PRN PACU, Pain Severe Pantoprazole Sodium 40 mg 03/05/18 12:45 03/05/18 13:40 Protonix IVP 09/01/18 12:44 40 mg BID FELICE Administration Pantoprazole Sodium 80 mg 03/05/18 14:29 03/05/18 16:20 Protonix IVP 03/05/18 14:30 Not Given ONCE ONE Phenylephrine HCl 100 mcg 03/02/18 11:07 Neosynephrine IVP 03/02/18 12:09 .Q2M PRN PACU, Hypotension Polyethylene Glycol/Electrolytes 4,000 ml 02/28/18 11:30 02/28/18 12:18 Gavilyte - G PO 02/28/18 11:31 4,000 ml ONCE ONE Administration Prochlorperazine Maleate 25 mg 02/28/18 21:00 02/28/18 21:35 Compazine LA 02/28/18 21:01 25 mg ONCE ONE Administration Promethazine HCl 6.25 - 12.5 mg 02/27/18 22:20 Phenergan IVP 08/26/18 22:19 Q6HRS PRN Nausea/Vomiting, Use 2nd Promethazine HCl 6.25 - 12.5 mg 03/02/18 11:07 Phenergan IVP 03/02/18 12:09 Q5M PRN PACUNausea/Vomiting, Unable PO Propofol Confirm 03/02/18 10:33 Diprivan Administered 03/02/18 10:34 Dose 200 mg .ROUTE .STK-MED ONE Propofol Confirm 03/02/18 10:33 Diprivan Administered 03/02/18 10:34 Dose 200 mg .ROUTE .STK-MED ONE Propofol Confirm 03/05/18 13:55 Diprivan 10 Mg/Ml (Premix) Administered 03/05/18 13:56 Dose 500 mg IV .STK-MED ONE Rocuronium [place] Confirm 03/02/18 10:44 Zemuron Administered 03/02/18 10:45 Dose 50 mg .ROUTE .STK-MED ONE Rocuronium [place] Confirm 03/05/18 13:54 Zemuron Administered 03/05/18 13:55 Dose 50 mg .ROUTE .STK-MED ONE Ropivacaine Confirm 03/02/18 11:24 Naropin Administered 03/02/18 11:25 Dose 150 mg .ROUTE .STK-MED ONE Succinylcholine Chloride Confirm 03/05/18 13:54 Quelicin Administered 03/05/18 13:55 Dose 200 mg IVP .STK-MED ONE Sugammadex Sodium Confirm 03/02/18 11:28 Bridion Administered 03/02/18 11:29 Dose 200 mg IVP .STK-MED ONE Physical Exam - Physical Exam General Appearance: alert, no apparent distress Respiratory: lungs clear, normal breath sounds Cardiac/Chest: regular rate, rhythm Abdomen: non-tender, soft Skin: normal color, warm/dry Neuro/Psych: alert, normal mood/affect, oriented x 3 ICD10 Worksheet Patient Problems: Problems Problem Status Onset Diverticulitis of intestine with perforation and abscess Acute
[2018-03-06] MEDS ORDERED: MAGNESIUM CITRATE 300 ML BOTTLE PO ONE (09:53)
--- NOTE | 2018-03-06 10:22 | ASMTCMCOM ---
CM Note CM Note Notes: Per physician, pt has had a GI bleed. She is presently stable in ICU, without signs and symptoms of acute bleeding. No OT/PT ordered. Continues with no CM needs; CM will follow for changes. D/C Plan: Anticipate independent Date Signed: 03/06/2018 10:21 AM Electronically Signed By:Shahrzad Dudley
--- NOTE | 2018-03-06 10:25 | SOAPPROG ---
SOAP Progress Note Assessment/Plan: 03/03/18 08:10 POD#1 Assessment: Feels much better, Passing gas and stool, Drains serous, +/- BS, WBC up slightly as expected. Plan: Continue NPO Lovenox to start this morning 03/05/18 11:52 POD#3 Called for stat team response for hypotension. lungs clear Had some bloody stool (old, on lovenox), POC HB down Drains - clearing CT abdomen STAT IMPRESSION: Need to confirm POC HB, Hypotension possibly due to GI Bleed due to lovenox/diverticulitis, Possibly due to bradycardia, Doubt sepsis, ME w/u in progress. Will place central line for IV access 03/06/18 10:17 POD#4 Assessment: Doing well. Hct down overnight. Doubt further bleeding. Will follow I&O/Hct Will need anticoag for factor V Leiden issue. F/u CT shows minimal pelvic fluid collection. Since afebrile and WBC down, will not pursue further drainage at this time. Will remove pelvic drain. Antibiotics altered based on C&S by ID. Plan: If H/h stable, will start feeds. Will start heparin due to Factor V Leiden risk issues. Will consider transfer to floor Subjective: "I feel so much better" Objective: Vital Signs Temp Pulse Resp BP Pulse Ox 36.7 C 95 15 127/73 H 95 03/06/18 04:00 03/06/18 06:00 03/06/18 06:00 03/06/18 06:00 03/06/18 06:00 Microbiology 03/02/18 11:28 Gram Stain - Final Other - Eswab 03/02/18 11:30 Gram Stain - Final Other - Eswab Laboratory Results 03/06/18 03:00 03/06/18 03:00 03/05/18 03/06/18 03/07/18 05:59 05:59 05:59 Intake Total 1723 2575 Output Total 1850 1015 200 Balance -127 1560 -200 PT 18.0 SEC (12.0-15.0) H 03/05/18 16:30 INR 1.47 (0.83-1.16) H 03/05/18 16:30 - Time Spent With Patient Time Spent With Patient: 25 minutes - Pending Discharge Pending Discharge Within 24 Hours: No Pending Discharge Within 48 Hours: No Physical Exam - Physical Exam General Appearance: WD/WN, alert, no apparent distress Respiratory: lungs clear, normal breath sounds Cardiac/Chest: regular rate, rhythm Abdomen: normal bowel sounds, non-tender, soft, other (incision clean and dry. pelvic drain has serous drainage. central abscess drain has old blood) Pelvic Exam: deferred Rectal: deferred Back: Normal inspection Skin: normal color, warm/dry Extremities: normal range of motion, non-tender Neuro/Psych: no motor/sensory deficits, alert, normal mood/affect, oriented x 3 ICD10 Worksheet Patient Problems: Problems Problem Status Onset Diverticulitis of intestine with perforation and abscess Acute
--- NOTE | 2018-03-06 12:37 | HOSPPROG ---
Hospitalist Progress Note Assessment/Plan: Acute Blood Loss Anemia - Became acutely hypotensive on 03/05 with episodes of melena/hematemesis - Hgb dropped from 11.2 to 8.5 yesterday in setting of hypotension - GI consulted who performed EGD yesterday which showed non-bleeding large DU - Started on IV PPI, will continue for now per GI - Hgb dropped to 6.3 overnight, s/p 2 units PRBCs, improved to 10.0 this morning - Continue to monitor H/H, s/s of bleeding - Transfuse H/H <7/20 Acute diverticulitis with abscess - Was previously on IV ceftriaxone/IV flagyl - ID following, wound cultures growing Citrobacter - Per ID, switched over to Ertapenum on 03/05 Intra-abdominal abscess x 2 - s/p OR with Dr. Coleman on 03/03 - CT A/P performed yesterday which showed minimal fluid collection, no drainage required per Dr. Coleman Sepsis as evidenced by leukocytosis and tachycardia - Management of acute diverticulitis as above H/o DVT with + Factor V Leiden - Holding ppx Lovenox Objective: Vital Signs Temp Pulse Resp BP Pulse Ox 36.7 C 95 15 127/73 H 95 03/06/18 04:00 03/06/18 06:00 03/06/18 06:00 03/06/18 06:00 03/06/18 06:00 Microbiology 03/02/18 11:30 Gram Stain - Final Other - Eswab 03/02/18 11:28 Gram Stain - Final Other - Eswab Laboratory Results 03/06/18 11:05 03/06/18 03:00 03/05/18 03/06/18 03/07/18 05:59 05:59 05:59 Intake Total 1723 2575 Output Total 1850 1015 200 Balance -127 1560 -200 PT 18.0 SEC (12.0-15.0) H 03/05/18 16:30 INR 1.47 (0.83-1.16) H 03/05/18 16:30 ICD10 Worksheet Patient Problems: Problems Problem Status Onset Diverticulitis of intestine with perforation and abscess Acute
[2018-03-06] MEDS: NS 1,000 ML IV SCH ×2 (13:11→23:50)
--- NOTE | 2018-03-06 13:27 | PCMIDPN ---
Assessment/Plan: Assessment/Plan: * Diverticular abscess status post open drainage: Cultures with growth of Streptococcus intermedius and Citrobacter amalonaticus. Continue ertapenem given isolation of Citrobacter with potential for inducible beta lactamase production. CT scan shows small residual fluid collection adjacent to rectum with resolution of abscesses centrally. Suspect small residual fluid collection will resolve with continued antibiotic therapy. * Leukocytosis: Improved today. Suspect some component related to stress associated with upper GI bleed. Continue to follow over time. 03/06/18 13:24 03/06/18 13:27 Subjective: Patient notes she is feeling better. No significant abdominal discomfort. 2nd unit of packed red blood cells transfused today. Objective: Vital Signs Temp Pulse Resp BP Pulse Ox 36.7 C 80 16 150/85 H 96 03/06/18 04:00 03/06/18 12:00 03/06/18 12:00 03/06/18 12:00 03/06/18 12:00 Microbiology 03/02/18 11:30 Gram Stain - Final Other - Eswab 03/02/18 11:28 Gram Stain - Final Other - Eswab Laboratory Results 03/06/18 11:05 03/06/18 03:00 03/05/18 03/06/18 03/07/18 05:59 05:59 05:59 Intake Total 1723 2575 Output Total 1850 1015 200 Balance -127 1560 -200 Ertapenem # 2, antibiotics # 3 CT scan of abdomen and pelvis showing marked improvement with resolution of central pelvic abscesses with residual 3.3 x 1.3 cm collection adjacent to rectum - Physical Exam General Appearance: alert, no apparent distress EENT: No scleral icterus, No thrush Respiratory: lungs clear, No respiratory distress Cardiac/Chest: regular rate, rhythm Extremities: No inflammation Abdomen: non-tender, other (Old bloody output in remaining MARY drain), No distended Skin: No rash - Line/s other Lines: other (Right subclavian triple-lumen catheter), No drainage, No erythema ICD10 Worksheet Patient Problems: Problems Problem Status Onset Diverticulitis of intestine with perforation and abscess Acute
[2018-03-06] MEDS: HEPARIN 5,000 UNIT/0.5 ML INJ SC SCH ×2 (14:06→22:12)
--- NOTE | 2018-03-06 14:42 | PDINTPN ---
Chief Recordist Progress Note Assessment/Plan: 57 F admitted 02/27 with nearly 2 weeks of abdominal pain and found to have abdominal abscess, likely the result of diverticulitis. She was treated conservatively with abx, but IR was unable to drain her abscess so she underwent laparotomy 03/[address] Coleman who drained the abscess and noted a second serous fluid collection which was also drained. After 2 days, she developed bloody stools with some melena with associated drop in BP and Hgb. She was treated with RBCs and IVF with resolution of her hypotension and appropriate rise in HH. An EGD reveled a clean base DU. * Hypotension- likely from GIB as evidenced by EGD; now stable and resolved. Never needed pressors * Anemia- probably from identified DU and remains stable after transfusion * Peritonitis/abscess- remains on Abx * OK for return to floor. Subjective: feels well and denies abdominal pain Objective: Vital Signs Temp Pulse Resp BP Pulse Ox 36.7 C 80 16 150/85 H 96 03/06/18 04:00 03/06/18 12:00 03/06/18 12:00 03/06/18 12:00 03/06/18 12:00 Microbiology 03/02/18 11:28 Gram Stain - Final Other - Eswab 03/02/18 11:30 Gram Stain - Final Other - Eswab Laboratory Results 03/06/18 11:05 03/06/18 03:00 03/05/18 03/06/18 03/07/18 05:59 05:59 05:59 Intake Total 1723 2575 651 Output Total 1850 1015 200 Balance -127 1560 451 PT 18.0 SEC (12.0-15.0) H 03/05/18 16:30 INR 1.47 (0.83-1.16) H 03/05/18 16:30 Physical Exam - Physical Exam General Appearance: WD/WN, alert, no apparent distress EENT: PERRL/EOMI Neck: supple Respiratory: lungs clear, normal breath sounds, No respiratory distress, No accessory muscle use Cardiac/Chest: regular rate, rhythm, No edema Abdomen: non-tender, soft, No distended Skin: normal color, warm/dry, No cyanosis Lymphatic: no adenopathy Extremities: No pedal edema Neuro/Psych: alert, normal mood/affect, oriented x 3 ICD10 Worksheet Patient Problems: Problems Problem Status Onset Diverticulitis of intestine with perforation and abscess Acute
[2018-03-06] MEDS: LATANOPROST 0.005% 2.5 ML OPHT DROPS EACHEYE SCH (20:22)
[2018-03-07] MEDS: PANTOPRAZOLE SODIUM 40 MG VIAL IVP SCH ×2 (04:22→07:57)
[2018-03-07 05:58] LABS: PLATELET COUNT 446 10^3/uL (150-400)
[2018-03-07] MEDS: SUCRALFATE 1 GM TAB PO SCH ×3 (06:30→18:07)
[2018-03-07] MEDS: HEPARIN 5,000 UNIT/0.5 ML INJ SC SCH ×3 (06:31→22:12)
[2018-03-07] MEDS: ACETAMINOPHEN 500 MG TAB PO SCH ×3 (06:31→22:11)
[2018-03-07] MEDS: ERTAPENEM 1 GM in NS 100 ML IV SCH (07:56)
[2018-03-07] MEDS: TIMOLOL 0.5% 15 ML OPHT.BTL EACHEYE SCH ×2 (07:58→20:47)
[2018-03-07] MEDS: DORZOLAMIDE 2% OPTH DROPS EACHEYE SCH ×2 (07:58→20:47)
--- NOTE | 2018-03-07 08:19 | SOAPPROG ---
SOAP Progress Note Assessment/Plan: Assessment: 57 ear old with DU in setting of Lovenox and history or aspirin (factor V Leiden mutation and history of DVT). No signs or symptoms of rebleeding. Tolerating PO, no abdominal pain. Gastric biopsies negative for H. pylori. Recent surgery for pelvic abbesses with drain placement due to diverticulitis. Clinically looks good but elevated WBC. Plan: 1. Regular diet 2. Pantoprazole 40 mg BID x 2 weeks then 40 mg weekly for life 3. May resume aspirin if recommended in 2 weeks while maintained on PPI 4. Elevated WBC and pelvic abscess drain as per surgery. 5. Will sign off, please call with further questions. 03/07/18 08:22 Subjective: CC: Diverticulitis with pelvic abbesses and GI bleed Feels great, tolerating regular diet. Passing flatus. Has passed some black and brown stool No abdominal pain of discomfort. Objective: Vital Signs Temp Pulse Resp BP Pulse Ox 37.1 C 88 16 152/91 H 95 03/07/18 07:15 03/07/18 07:15 03/07/18 07:15 03/07/18 07:15 03/07/18 07:15 Microbiology 03/02/18 11:28 Gram Stain - Final Other - Eswab 03/02/18 11:30 Gram Stain - Final Other - Eswab Laboratory Results 03/07/18 05:10 03/06/18 03:00 03/06/18 03/07/18 03/08/18 05:59 05:59 05:59 Intake Total 2575 1951 Output Total 1015 2165 1300 Balance 1560 -214 -1300 PT 18.0 SEC (12.0-15.0) H 03/05/18 16:30 INR 1.47 (0.83-1.16) H 03/05/18 16:30 Generic Name Dose Route Start Last Admin Trade Name Freq PRN Reason Stop Dose Admin Acetaminophen 1,000 mg 02/28/18 06:00 03/07/18 06:31 Tylenol PO 08/27/18 05:59 1,000 mg Q8HRS FELICE Administration Alteplase, Recombinant 2 mg 03/05/18 11:52 Cathflo Activase IVP 09/01/18 11:51 PRN PRN Per PICC line policy Dorzolamide HCl 1 drops 02/28/18 09:00 03/07/18 07:58 Trusopt 2% EACHEYE 08/27/18 08:59 1 drop BID FELICE Administration Heparin Sodium (Porcine) 5,000 unit 03/06/18 14:00 03/07/18 06:31 Heparin Sc Injection SC 09/02/18 13:59 5,000 unit Q8HRS FELICE Administration Hydromorphone HCl 0.2 - 0.4 mg 03/02/18 12:12 Dilaudid IVP 03/11/18 12:58 Q1H PRN Pain, Severe Unable to Take PO Sodium Chloride 1,000 mls @ 100 mls/hr 03/05/18 13:00 03/06/18 23:50 Ns IV 09/01/18 12:59 1,000 mls CONT FELICE Administration Ertapenem 1 gm/ Sodium 100 mls @ 200 mls/hr 03/05/18 16:30 03/07/18 07:56 Chloride IV 04/04/18 16:29 100 mls DAILY FELICE Administration Protocol Latanoprost 1 drops 02/28/18 21:00 03/06/18 20:22 Xalatan 0.005% EACHEYE 08/27/18 20:59 1 drop HS FELICE Administration Ondansetron HCl 4 mg 02/27/18 22:20 03/05/18 10:10 Zofran IVP 08/26/18 22:19 4 mg Q4HRS PRN Administration Nausea/Vomiting, Can't Take PO Pantoprazole Sodium 40 mg 03/05/18 15:00 03/07/18 07:57 Protonix IVP 09/01/18 14:59 40 mg Q6H FELICE Administration Sucralfate 1 gm 03/05/18 12:45 03/07/18 06:30 Carafate PO 09/01/18 12:44 1 gm Q6H FELICE Administration Timolol Maleate 1 drops 02/28/18 09:00 03/07/18 07:58 Timoptic 0.5% EACHEYE 08/27/18 08:59 1 drop BID FELICE Administration Discontinued Medications Generic Name Dose Route Start Last Admin Trade Name Freq PRN Reason Stop Dose Admin Acetaminophen 650 mg 02/27/18 22:20 02/27/18 23:15 Tylenol PO 08/26/18 22:19 650 mg Q4HRS PRN Administration Pain, Mild/Fever, Can Take PO Acetaminophen 500 mg 03/02/18 11:07 Tylenol PO 03/02/18 12:07 Q6HRS PRN PACU, Pain Mild Hydrocodone Bitart/Acetaminophen 1 - 2 tab 02/27/18 22:20 Solon 5/325 PO 03/09/18 22:19 Q4HRS PRN Pain, Moderate Able to Take PO Albuterol 3 ml 03/02/18 11:07 Proventil Neb IH 03/02/18 12:07 Q10M PRN PACU, Wheezing Bacitracin Confirm 03/02/18 12:04 03/02/18 18:37 Bacitracin Ointment Tube Administered 03/02/18 12:05 Not Given Dose 14.2 malachi TP .STK-MED ONE Dexamethasone Confirm 03/02/18 10:56 Decadron Injection Administered 03/02/18 10:57 Dose 4 mg .ROUTE .STK-MED ONE Dexamethasone Confirm 03/02/18 10:56 Decadron Injection Administered 03/02/18 10:57 Dose 4 mg .ROUTE .STK-MED ONE Enoxaparin Sodium 40 mg 02/28/18 17:37 02/28/18 18:06 Lovenox SC 02/28/18 17:38 40 mg ONCE ONE Administration Enoxaparin Sodium 40 mg 03/03/18 09:00 03/05/18 08:08 Lovenox SC 08/30/18 08:59 40 mg DAILY FELICE Administration Ephedrine Sulfate 25 mg 03/02/18 11:07 Ephedrine Sulfate IM 03/02/18 12:09 ONCE PRN PACU, Nausea/Vomiting Ephedrine Sulfate 10 mg 03/02/18 11:07 Ephedrine Sulfate IV 03/02/18 12:10 .Q5M PRN PACU, Hypotension Erythromycin 1,000 mg 02/28/18 16:00 02/28/18 22:36 Andi-Tab PO 03/01/18 00:01 Not Given Q4H [facility] Protocol Erythromycin 1,000 mg 02/28/18 20:00 03/01/18 06:32 Andi-Tab PO 03/01/18 04:01 1,000 mg Q4H FELICE Administration Protocol Fentanyl Confirm 03/02/18 10:33 Sublimaze Administered 03/02/18 10:34 Dose 100 mcg .ROUTE .STK-MED ONE Fentanyl 25 - 100 mcg 03/02/18 11:07 Sublimaze IVP 03/02/18 12:07 Q5M PRN PACU, IMMEDIATE Pain control Fentanyl Confirm 03/05/18 13:54 Sublimaze Administered 03/05/18 13:55 Dose 100 mcg .ROUTE .STK-MED ONE Fentanyl 25 - 100 mcg 03/05/18 14:34 Sublimaze IVP 03/05/18 15:34 Q5M PRN PACU, IMMEDIATE Pain control Hydromorphone HCl 0.2 - 0.4 mg 03/01/18 12:59 Dilaudid IVP 03/11/18 12:58 Q4HRS PRN Pain, Severe Unable to Take PO Hydromorphone HCl Confirm 03/02/18 10:56 Dilaudid Administered 03/02/18 10:57 Dose 2 mg .ROUTE .STK-MED ONE Hydromorphone HCl 0.1 - 0.4 mg 03/02/18 11:07 Dilaudid IVP 03/02/18 12:07 Q10M PRN PACU, PAIN Sodium Chloride 1,000 mls @ 0 mls/hr 02/27/18 19:50 02/27/18 20:02 Ns IV 02/27/18 19:51 1,000 mls EDNOW ONE Administration Protocol Wide Open Ceftriaxone Sodium/Dextrose 50 mls @ 100 mls/hr 02/27/18 21:33 02/27/18 21:53 Rocephin 1 Gm (Premix) IV 02/27/18 22:02 50 mls EDNOW ONE Administration Protocol Metronidazole/Sodium Chloride 100 mls @ 100 mls/hr 02/27/18 21:33 02/27/18 22 :35 Flagyl 500 Mg (Premix) IV 02/27/18 22:32 100 mls EDNOW ONE Administration Protocol Potassium Chloride/Sodium Chloride 1,000 mls @ 100 mls/hr 02/27/18 22:30 12/07 18:11 Ns W/ 20 Kcl/L IV 08/26/18 22:29 1,000 mls CONT FELICE Administration Ertapenem 1 gm/ Sodium 100 mls @ 200 mls/hr 02/28/18 09:00 Chloride IV 03/30/18 08:59 DAILY FELICE Protocol Piperacillin/Tazobactam/Dextrose 50 mls @ 100 mls/hr 02/28/18 06:00 02/28/18 05:52 Zosyn 3.375 Gm (Premix) IV 03/30/18 05:59 50 mls Q6HRS FELICE Administration Protocol Ertapenem 1 gm/ Sodium 100 mls @ 200 mls/hr 02/28/18 09:15 03/03/18 07:47 Chloride IV 03/30/18 09:14 100 mls DAILY FELICE Administration Protocol Potassium Chloride/Dextrose/Sod Cl 1,000 mls @ 100 mls/hr 03/01/18 07:00 02/06 05:14 D5w 1/2 Ns W/ 20 Kcl/L IV 08/28/18 06:59 1,000 mls CONT FELICE Administration Lactated Ringer's 1,000 mls @ 0 mls/hr 03/02/18 09:25 03/02/18 09:30 Lr IV 03/02/18 09:26 1,000 mls ONCE ONE Administration KVO Lactated Ringer's 500 mls @ 0 mls/hr 03/02/18 11:07 Lr IV 03/02/18 12:09 PRN PRN PACU, Nausea/Vomiting Post-Op Wide Open Lactated Ringer's 1,000 mls @ 100 mls/hr 03/02/18 12:30 03/02/18 23:35 Lr IV 08/29/18 12:29 1,000 mls CONT FELICE Administration Potassium Chloride 10 meq/ 1,000 mls @ 100 mls/hr 03/03/18 08:00 03/04/18 08: 27 Dextrose/Sodium Chloride IV 08/30/18 07:59 1,000 mls CONT FELICE Administration Ceftriaxone Sodium 2 gm/ 50 mls @ 100 mls/hr 03/04/18 09:00 03/05/18 08:08 Sodium Chloride IV 04/03/18 08:59 50 mls DAILY FELICE Administration Protocol Metronidazole/Sodium Chloride 100 mls @ 100 mls/hr 03/04/18 06:00 03/06/18 05 :04 Flagyl 500 Mg (Premix) IV 04/03/18 05:59 100 mls Q8HRS FELICE Administration Protocol Sodium Chloride 1,000 mls @ 3,000 mls/hr 03/05/18 11:50 03/05/18 14:36 Ns IV 03/05/18 12:09 1,000 mls ONCE ONE Administration Sodium Chloride 500 mls @ 1,500 mls/hr 03/05/18 12:53 03/05/18 12:59 Ns IV 03/05/18 13:12 500 mls ONCE ONE Administration Sodium Chloride 500 mls @ 0 mls/hr 03/05/18 14:34 Ns IV 03/05/18 15:34 PRN PRN PACU, Nausea/Vomiting Post-Op Wide Open Iopamidol Confirm 02/27/18 20:07 Isovue-370 Administered 02/27/18 20:08 Dose 100 ml IV .STK-MED ONE Iopamidol Confirm 03/01/18 12:15 Isovue-370 Administered 03/01/18 12:16 Dose 100 ml IV .STK-MED ONE Iopamidol Confirm 03/05/18 11:55 Isovue-370 Administered 03/05/18 11:56 Dose 100 ml IV .STK-MED ONE Ketorolac Tromethamine 30 mg 02/28/18 00:12 03/04/18 19:54 Toradol IVP 03/05/18 00:11 30 mg Q6HRS PRN Administration Pain, Moderate Ketorolac Tromethamine Confirm 03/02/18 11:58 Toradol Administered 03/02/18 11:59 Dose 30 mg .ROUTE .STK-MED ONE Labetalol HCl 5 - 10 mg 03/02/18 11:07 Trandate Injection IVP 03/02/18 12:07 Q10M PRN PACU, Hypertension Lidocaine HCl Confirm 03/02/18 10:44 Xylocaine-Mpf 2% Vial Administered 03/02/18 10:45 Dose 5 ml .ROUTE .STK-MED ONE Magnesium Citrate 300 ml 03/06/18 09:53 03/06/18 10:46 Magnesium Citrate PO 03/06/18 09:54 Not Given ONCE ONE Meperidine HCl 12.5 - 25 mg 03/02/18 11:07 Demerol IVP 03/02/18 12:09 Q10M PRN PACU, shivering/rigors Metoclopramide HCl 10 mg 03/02/18 11:07 03/02/18 12:44 Reglan Injection IVP 03/02/18 12:09 10 mg ONCE PRN Administration PACU, Nausea/Vomiting Metoclopramide HCl Confirm 03/02/18 12:43 Reglan Injection Administered 03/02/18 12:44 Dose 10 mg .ROUTE .STK-MED ONE Midazolam HCl 2 mg 03/02/18 10:27 03/02/18 10:32 Versed IVP 03/02/18 10:28 2 mg ONCALL ONE Administration Midazolam HCl Confirm 03/02/18 10:28 Versed Administered 03/02/18 10:29 Dose 2 mg .ROUTE .STK-MED ONE Morphine Sulfate 1 - 2 mg 02/28/18 08:46 Morphine IVP 03/10/18 08:45 Q1HR PRN Pain, Severe Naloxone HCl 0.1 mg 03/02/18 11:07 Narcan IVP 03/02/18 12:07 Q2M PRN PACU Resp Rate <10/min Naloxone HCl 0.1 mg 03/05/18 14:34 Narcan IVP 03/05/18 15:34 Q2M PRN PACU Resp Rate <10/min Neomycin Sulfate 1,000 mg 02/28/18 16:00 02/28/18 22:35 Neomycin Sulfate PO 03/01/18 00:01 Not Given Q4H [facility] Protocol Neomycin Sulfate 1,000 mg 02/28/18 20:00 03/01/18 06:33 Neomycin Sulfate PO 03/01/18 04:01 1,000 mg Q4H FELICE Administration Protocol Nitroglycerin 0.4 mg 02/28/18 08:47 Nitrostat SL 08/27/18 08:46 Q5M PRN Chest Pain Ondansetron HCl 4 mg 02/27/18 22:20 Zofran Odt PO 08/26/18 22:19 Q4HRS PRN Nausea/Vomiting, Use 1st Ondansetron HCl Confirm 03/02/18 10:59 Zofran Administered 03/02/18 11:00 Dose 4 mg .ROUTE .STK-MED ONE Ondansetron HCl 2 - 4 mg 03/05/18 14:34 Zofran IVP 03/05/18 15:34 Q10M PRN PACU, Nausea/Vomiting Oxycodone HCl 5 - 10 mg 03/02/18 11:07 Oxycodone Ir PO 03/02/18 12:07 Q4HRS PRN PACU, Pain Severe Pantoprazole Sodium 40 mg 03/05/18 12:45 03/05/18 13:40 Protonix IVP 09/01/18 12:44 40 mg BID FELICE Administration Pantoprazole Sodium 80 mg 03/05/18 14:29 03/05/18 16:20 Protonix IVP 03/05/18 14:30 Not Given ONCE ONE Phenylephrine HCl 100 mcg 03/02/18 11:07 Neosynephrine IVP 03/02/18 12:09 .Q2M PRN PACU, Hypotension Polyethylene Glycol/Electrolytes 4,000 ml 02/28/18 11:30 02/28/18 12:18 Gavilyte - G PO 02/28/18 11:31 4,000 ml ONCE ONE Administration Prochlorperazine Maleate 25 mg 02/28/18 21:00 02/28/18 21:35 Compazine FL 02/28/18 21:01 25 mg ONCE ONE Administration Promethazine HCl 6.25 - 12.5 mg 02/27/18 22:20 Phenergan IVP 08/26/18 22:19 Q6HRS PRN Nausea/Vomiting, Use 2nd Promethazine HCl 6.25 - 12.5 mg 03/02/18 11:07 Phenergan IVP 03/02/18 12:09 Q5M PRN PACUNausea/Vomiting, Unable PO Propofol Confirm 03/02/18 10:33 Diprivan Administered 03/02/18 10:34 Dose 200 mg .ROUTE .STK-MED ONE Propofol Confirm 03/02/18 10:33 Diprivan Administered 03/02/18 10:34 Dose 200 mg .ROUTE .STK-MED ONE Propofol Confirm 03/05/18 13:55 Diprivan 10 Mg/Ml (Premix) Administered 03/05/18 13:56 Dose 500 mg IV .STK-MED ONE Rocuronium [place] Confirm 03/02/18 10:44 Zemuron Administered 03/02/18 10:45 Dose 50 mg .ROUTE .STK-MED ONE Rocuronium [place] Confirm 03/05/18 13:54 Zemuron Administered 03/05/18 13:55 Dose 50 mg .ROUTE .STK-MED ONE Ropivacaine Confirm 03/02/18 11:24 Naropin Administered 03/02/18 11:25 Dose 150 mg .ROUTE .STK-MED ONE Scopolamine HBr 1 patch 02/28/18 21:00 03/03/18 21:55 Scopolamine Patch TD 08/27/18 20:59 1 patch Q72H FELICE Administration Succinylcholine Chloride Confirm 03/05/18 13:54 Quelicin Administered 03/05/18 13:55 Dose 200 mg IVP .STK-MED ONE Sugammadex Sodium Confirm 03/02/18 11:28 Bridion Administered 03/02/18 11:29 Dose 200 mg IVP .STK-MED ONE Physical Exam - Physical Exam General Appearance: alert, no apparent distress Respiratory: lungs clear, normal breath sounds Cardiac/Chest: regular rate, rhythm Abdomen: normal bowel sounds, non-tender, soft Skin: normal color, warm/dry Neuro/Psych: alert, normal mood/affect, oriented x 3 ICD10 Worksheet Patient Problems: Problems Problem Status Onset Diverticulitis of intestine with perforation and abscess Acute
--- NOTE | 2018-03-07 08:51 | SOAPPROG ---
KAREN Progress Note Assessment/Plan: Assessment: 57yo F s/p ex-lap, open drainage of multiple pelvic abscesses 2/2 perforated diverticulitis, also c DU bleed s/p EGD - VSS, HDS. Afebrile - she is tolerating a regular diet, passing flatus and having BMs - her abdomen is soft, her remaining MARY is scant output which appears to be old blood. [place] are c/d/i - WBC up to 16 today from 13, on Invanz. - Hb stable on BID PPI - will keep today given her WBC spike, if persistenly high tomorrow or fevers will repeat scan tomorrow. Did review CT from 2 days ago which showed small residual pelvic abscess, this may be getting bigger and may need perc drainage if WBC remains elevated. Plan: 03/07/18 08:49 Subjective: feels great, wants to go home Objective: Vital Signs Temp Pulse Resp BP Pulse Ox 37.1 C 88 16 152/91 H 95 03/07/18 07:15 03/07/18 07:15 03/07/18 07:15 03/07/18 07:15 03/07/18 07:15 Microbiology 03/02/18 11:28 Gram Stain - Final Other - Eswab 03/02/18 11:30 Gram Stain - Final Other - Eswab Laboratory Results 03/07/18 05:10 03/06/18 03:00 03/06/18 03/07/18 03/08/18 05:59 05:59 05:59 Intake Total 2575 1951 Output Total 1015 2165 1300 Balance 1560 -214 -1300 PT 18.0 SEC (12.0-15.0) H 03/05/18 16:30 INR 1.47 (0.83-1.16) H 03/05/18 16:30 ICD10 Worksheet Patient Problems: Problems Problem Status Onset Diverticulitis of intestine with perforation and abscess Acute
[2018-03-07] MEDS ORDERED: PANTOPRAZOLE SODIUM 40 MG TAB PO SCH (09:00)
--- NOTE | 2018-03-07 12:53 | HOSPPROG ---
Hospitalist Progress Note Assessment/Plan: Acute Blood Loss Anemia - Became acutely hypotensive on 03/05 with episodes of melena/hematemesis - Hgb dropped from 11.2 to 8.5 on 03/05 in setting of hypotension - GI consulted who performed EGD which showed non-bleeding large DU - Started on IV PPI, transitioning to PO Pantoprazole 40 mg BID per GI - Hgb dropped to 6.3 overnight on 03/06, s/p 2 units PRBCs, improved to 10.6 this morning - Continue to monitor H/H, s/s of bleeding - Transfuse H/H <7 Acute diverticulitis with abscess - Was previously on IV ceftriaxone/IV flagyl - ID following, wound cultures growing Citrobacter - Per ID, switched over to Ertapenum on 03/05, f/u their recommendations on duration - PICC placed on 03/05 Intra-abdominal abscess x 2 - s/p OR with Dr. Coleman on 03/03 - CT A/P performed on 03/05 which showed minimal fluid collection, no drainage required per Dr. Coleman - Per surgery notes from this AM, they recommend that if WBCs persistenly high tomorrow or fevers, plan to repeat scan Sepsis as evidenced by leukocytosis and tachycardia - Management of acute diverticulitis as above H/o DVT with + Factor V Leiden - Holding ppx Lovenox in setting of GIB as above, SCDs Dispo: Pending clinical course, if no surgical drainage of abscess, duration of abx per ID Subjective: Patient reports feeling overall better, able to tolerate PO, passing gas and had BM Objective: Vital Signs Temp Pulse Resp BP Pulse Ox 37.0 C 87 18 161/90 H 93 03/07/18 11:30 03/07/18 11:30 03/07/18 11:30 03/07/18 11:30 03/07/18 11:30 Microbiology 03/02/18 11:30 Gram Stain - Final Other - Eswab 03/02/18 11:28 Gram Stain - Final Other - Eswab Laboratory Results 03/07/18 05:10 03/06/18 03:00 03/06/18 03/07/18 03/08/18 05:59 05:59 05:59 Intake Total 2575 1951 Output Total 1015 2165 1300 Balance 1560 -214 -1300 PT 18.0 SEC (12.0-15.0) H 03/05/18 16:30 INR 1.47 (0.83-1.16) H 03/05/18 16:30 - Physical Exam Constitutional: chronically ill appearing Eyes: PERRL Ears, Nose, Mouth, Throat: moist mucous membranes Cardiovascular: regular rate and rhythym Respiratory: no respiratory distress Gastrointestinal: tenderness Genitourinary: no bladder tenderness Musculoskeletal: full muscle strength Neurologic: AAOx3 Psychiatric: interacting appropriately ICD10 Worksheet Patient Problems: Problems Problem Status Onset Diverticulitis of intestine with perforation and abscess Acute
--- NOTE | 2018-03-07 16:54 | PCMIDPN ---
Assessment/Plan: Assessment/Plan: * Diverticular abscess status post open drainage: Cultures with growth of Streptococcus intermedius and Citrobacter amalonaticus with further culture findings showing growth of Pseudomonas aeruginosa and Parvimonas as well as additional gram-negative norma. Will change ertapenem to meropenem based on this finding. Agree with plans for repeat CT scan of abdomen and pelvis if white blood cell count continues to increase to assess for any worsening of residual perirectal fluid collection. * Leukocytosis: Increased today. See above discussion regarding repeat CT scan if continued increased her failure to normalize. 03/07/18 16:54 Subjective: Patient feels better. No abdominal pain. Up walking in halls without difficulty. Notes fatigue after walking. Objective: Vital Signs Temp Pulse Resp BP Pulse Ox 36.8 C 109 H 16 146/90 H 94 03/07/18 16:45 03/07/18 16:45 03/07/18 16:45 03/07/18 16:45 03/07/18 16:45 Microbiology 03/02/18 11:28 Gram Stain - Final Other - Eswab 03/02/18 11:30 Gram Stain - Final Other - Eswab Laboratory Results 03/07/18 05:10 03/06/18 03:00 03/06/18 03/07/18 03/08/18 05:59 05:59 05:59 Intake Total 2575 1951 1100 Output Total 1015 2165 2100 Balance 1560 -214 -1000 Ertapenem # 3, antibiotics # 4 Cultures with growth of Streptococcus intermedius, Citrobacter, Pseudomonas aeruginosa and Parvimonas and Gram-negative norma not further ID - Physical Exam General Appearance: alert, no apparent distress EENT: No scleral icterus, No thrush Respiratory: lungs clear, No respiratory distress Cardiac/Chest: regular rate, rhythm Extremities: No inflammation Abdomen: non-tender, other (Surgical incision intact without erythema or drainage; small amount serous drainage around MARY drain entrance site; old- appearing blood in MARY bulb), No distended Skin: No rash ICD10 Worksheet Patient Problems: Problems Problem Status Onset Diverticulitis of intestine with perforation and abscess Acute
[2018-03-07] MEDS ORDERED: PIPERACILLIN/TAZO 4.5 GM/DEX 100 ML IV SCH (18:00)
[2018-03-07] MEDS: LATANOPROST 0.005% 2.5 ML OPHT DROPS EACHEYE SCH (20:47)
[2018-03-07] MEDS: PANTOPRAZOLE SODIUM 40 MG TAB PO SCH (20:51)
[2018-03-07] MEDS: MEROPENEM 1 GM in NS 100 ML IV SCH (20:51)
[2018-03-08] MEDS: SUCRALFATE 1 GM TAB PO SCH ×4 (00:54→18:42)
[2018-03-08] MEDS: MEROPENEM 1 GM in NS 100 ML IV SCH ×3 (05:32→17:34)
[2018-03-08] MEDS: ACETAMINOPHEN 500 MG TAB PO SCH ×3 (05:33→18:41)
[2018-03-08 05:52] LABS: PLATELET COUNT 398 10^3/uL (150-400)
[2018-03-08] MEDS: HEPARIN 5,000 UNIT/0.5 ML INJ SC SCH ×2 (06:38→13:22)
--- NOTE | 2018-03-08 09:52 | SOAPPROG ---
KAREN Progress Note Assessment/Plan: Assessment: 57yo F s/p ex-lap, open drainage of multiple pelvic abscesses 2/2 perforated diverticulitis, also c DU bleed s/p EGD - VSS, HDS. Afebrile - continues to tolerate diet. Passing flatus, no BM. Will add bowel regimen today - WBC down today, abx changed per Cx results per Dr Langston. ? PO transition, outpatient IV infusions - abdomen looks great, I removed her remaining MARY. - from surgical standpoint, ready for dc. Will defer to ID regarding abx, hopeful there is PO equivalent as she is clinically ready for dc Plan: 03/07/18 08:49 03/08/18 09:51 Subjective: feels great, still desperately wants to go home Objective: Vital Signs Temp Pulse Resp BP Pulse Ox 37.1 C 79 18 161/89 H 93 03/08/18 04:00 03/08/18 04:00 03/08/18 04:00 03/08/18 04:00 03/08/18 04:00 Microbiology 03/02/18 11:28 Gram Stain - Final Other - Eswab 03/02/18 11:30 Gram Stain - Final Other - Eswab Laboratory Results 03/08/18 05:20 03/08/18 05:20 03/07/18 03/08/18 03/09/18 05:59 05:59 05:59 Intake Total 1951 1700 Output Total 2165 3005 Balance -214 -1305 PT 18.0 SEC (12.0-15.0) H 03/05/18 16:30 INR 1.47 (0.83-1.16) H 03/05/18 16:30 ICD10 Worksheet Patient Problems: Problems Problem Status Onset Diverticulitis of intestine with perforation and abscess Acute
[2018-03-08] MEDS: PANTOPRAZOLE SODIUM 40 MG TAB PO SCH ×2 (09:57→18:41)
[2018-03-08] MEDS: TIMOLOL 0.5% 15 ML OPHT.BTL EACHEYE SCH (09:58)
[2018-03-08] MEDS: DORZOLAMIDE 2% OPTH DROPS EACHEYE SCH (09:58)
[2018-03-08 10:02] VITALS: BP 123/81
[2018-03-08] MEDS ORDERED: ALTEPLASE 2 MG VIAL IVP PRN (11:20)
--- NOTE | 2018-03-08 11:21 | PCMIDPN ---
Assessment/Plan: # Polymicrobial diverticular abscess with Citrobacter, Pseudomonas, Streptococcus intermedius and an anaerobe --challenging antibiotic coverage, basically only option is meropenem. Further patient had dramatic improvement overnight with initiation of meropenem. --DC central line, place PICC --care coordinated with surgeon and Case Management to try to get patient discharged today but warned patient and may take till tomorrow --arranged follow-up in our office next week, see discharge tab Medications Meropenem 1 g IV Q 8h, # 2 Subjective: feeling much better, really wants to go home today Objective: Vital Signs Temp Pulse Resp BP Pulse Ox 36.9 C 101 H 14 123/81 H 92 03/08/18 08:00 03/08/18 08:00 03/08/18 08:00 03/08/18 08:00 03/08/18 08:00 Microbiology 03/02/18 11:28 Gram Stain - Final Other - Eswab 03/02/18 11:30 Gram Stain - Final Other - Eswab Laboratory Results 03/08/18 05:20 03/08/18 05:20 03/07/18 03/08/18 03/09/18 05:59 05:59 05:59 Intake Total 1951 1700 Output Total 2168 3005 Balance -214 -1305 - Physical Exam General Appearance: alert, no apparent distress EENT: pale conjunctiva, No scleral icterus Respiratory: No accessory muscle use Neck: supple Cardiac/Chest: regular rate, rhythm, No systolic murmur Abdomen: non-tender, soft, distended (mild), other (Slightly decreased bowel sounds but are present) Pelvic Exam: No dias Skin: No rash Neuro/Psych: alert, normal mood/affect, oriented x 3 - Line/s other Lines: other (R subclavian c/d/i), No drainage, No erythema - Time Spent With Patient Time Spent with Patient: greater than 35 minutes Time Spent with Patient: Greater than 35 minutes spent on this patients care, greater than 50% of time spent counseling, educating, and coordinating care regarding the above mentioned plan. ICD10 Worksheet Patient Problems: Problems Problem Status Onset Diverticulitis of intestine with perforation and abscess Acute
--- NOTE | 2018-03-08 11:26 | PDIAF ---
- Diagnosis Diagnosis: Polymicrobial diverticular abscess Code Status: Full Code - Medication Management Long-Term Antibiotics: Meropenem 1 g IV Q 8 hours Rn Geriatric Antibiotic Stop Date: 03/15/18 (Okay to adjust antibiotic dose times for more convenient sleeping) Discharge Medications: electronically signed and located in the Home Medication List. PICC Care - Routine: Yes - Orders Services needed: Home Care, Registered Nurse Home Care Face to Face: I certify that this patient was under my care and that I had the required [id number] encounter meeting the encounter requirements on the discharge day. My findings support the fact that the patient is homebound as defined in Home Care Face to Face Continued: CMS Chapter 7 Medicare Benefits Manual 30.1.1 , The condition of the patient is such that there exists a normal inability to leave home and consequently, leaving home would require a considerable and taxing effort. Diet Recommendation: no restrictions on diet Diet Texture: Regular Texture Diet Additional Instructions: No heavy lifting or strenuous activity for 4 weeks Shower daily, no tub bathing or soaking for 2 weeks Start with 40 Twice a day of the PPI for 2 weeks, then daily for life HOLD your aspirin for the next 2 weeks, restart when you go to once daily of the PPI - Labs/Radiology CBC w/diff Date: 03/11/18 CMP Date: 03/11/18 Call or Fax Lab and Imaging Results to: Phill Langston MD [facility] at fax [phone] - Follow Up Care Current Providers and Referrals: Reny Durham MD [Primary Care Provider] - As per Instructions Fernando Weaver MD [Medical Doctor] - Law Anglin MD [Medical Doctor] - follow up in 10 days Phill Langston MD [Medical Doctor] - 03/13/18 11:30 am
--- NOTE | 2018-03-08 15:27 | ASMTLACE ---
LACE Length of stay for Answers: 7-13 days current admission Acuity / Level of Answers: Yes Care: Did the patient have an inpatient admission? Comorbidities - select Answers: Other Notes: Factor V Leiden; DVT all that apply # of Emergency department Answers: 1-2 visits in the last 6 months Score: 10 Date Signed: 03/08/2018 03:26 PM Electronically Signed By:Carlotta Henriquez RN
--- NOTE | 2018-03-08 15:32 | ASMTDCNOTE ---
Case Management Discharge Discharge Order Complete? Answers: Yes Patient to Obtain Answers: Independently Medications Transportation Arranged Answers: Family/Friends Faxed Final Orders Answers: Yes Family Notified Answers: Yes Discharge Comments Notes: Patient discharged home with [facility] RN and [facility] infusion [facility]. [facility] will deliver medication tonight, and [facility] RN will visit patient tomorrow AM. All orders sent and received by aformentioned agencies. Date Signed: 03/08/2018 03:31 PM Electronically Signed By:Carlotta Henriquez RN
--- NOTE | 2018-03-09 17:37 | ASDISCHSUM ---
Discharge Information Plan Status:IV ABX/Infusion Medically Cleared to Leave: Discharge Date:03/08/2018 07:00 PM D/C Disposition:Home Health Service [facility] D/C Disposition:Home, Routine, Self-Care Projected Discharge Date:03/08/2018 11:00 AM Transportation at D/C:Family Discharge Delay Reason: Follow-Up Date:03/08/2018 11:00 AM Discharge Slot: Final Diagnosis: Placement Information Referral Type:Home Infusion Referral ID:[id number] Provider Name:[facility] Address 1:[address] Address 2: City:[place] Selection Factors: State:[place] Referral Type:*Home Health Care Services Referral ID:[id number] Provider Name:[facility] Address [address] Address 2: City:[place] Selection Factors: State:[place] Patient Contact Information Contact Name:NIRAJ Relationship: Address:[address] [id number] Work Phone: City:[facility] Phone: State/Zip Code:[place] [address] Email: Financial Information Financial Class:BCOP Primary Plan Desc:[employer] [place] [employer] Primary Plan Number:[id number] Secondary Plan Desc: Secondary Plan Number: Assessment Information LACE LACE Length of stay for Answers: 7-13 days current admission Acuity / Level of Answers: Yes Care: Did the patient have an inpatient admission? Comorbidities - select Answers: Other Notes: Factor V Leiden; DVT all that apply # of Emergency department Answers: 1-2 visits in the last 6 months Score: 10 Date Signed: 03/08/2018 03:26 PM Electronically Signed By:Carlotta Henriquez RN [facility] CM Progress Note CM Note CM Note Notes: Pt is a 57 y/o female admitted for abdominal pain. Pt will most likely d/c independent when medically stable. No therapies ordered at this time. CM available for changes. Plan: Independent Date Signed: 02/28/2018 12:12 PM Electronically Signed By:MUNA Houston [facility] CM Progress Note CM Note CM Note Notes: Reviewed chart. Pt is s/p an exploratory laparotomy today for drainage of two intra-abdominal abscesses with MARY drains. Discharge plan remains unclear at this time. No therapies ordered. CM will continue to follow for any potential needs. Discharge Plan: To be determined, likely independent Date Signed: 03/02/2018 01:32 PM Electronically Signed By:Maria E Fraire RN [facility] CM Progress Note CM Note CM Note Notes: Pt was noted to have a large bloody BM. Pt is diaphoretic and low blood pressure due to possible lovenox. STAT team was called overhead. CM will follow for d/c needs. Date Signed: 03/05/2018 12:28 PM Electronically Signed By:MUNA Houston [facility] CM Progress Note CM Note CM Note Notes: Per physician, pt has had a GI bleed. She is presently stable in ICU, without signs and symptoms of acute bleeding. No OT/PT ordered. Continues with no CM needs; CM will follow for changes. D/C Plan: Anticipate independent Date Signed: 03/06/2018 10:21 AM Electronically Signed By:Shahrzad Dudley Case Management Discharge Plan Note Case Management Discharge Discharge Order Complete? Answers: Yes Patient to Obtain Answers: Independently Medications Transportation Arranged Answers: Family/Friends Faxed Final Orders Answers: Yes Family Notified Answers: Yes Discharge Comments Notes: Patient discharged home with [facility] RN and [facility] home infusion services. [facility] will deliver medication tonight, and [facility] RN will visit patient tomorrow AM. All orders sent and received by aformentioned agencies. Date Signed: 03/08/2018 03:31 PM Electronically Signed By:Carlotta Henriquez RN Intervention Information
== END 2018-03-08 19:00 | disposition home health service (06) | DRG 853 ==
LOC: F3E 22:45 → F2N 03-05 13:30 → F3E 03-06 13:59
PROVIDERS: ADMIT Internal Medicine; ATTEND Surgery
PROC: 0W9H00Z Drainage of Retroperitoneum with Drainage Device, Open Approach (ICD-10-PCS; principal; 2018-03-02 10:30)
PROC: 0DB68ZX Excision of Stomach, Via Natural or Artificial Opening Endoscopic, Diagnostic (ICD-10-PCS; 2018-03-05)
PROC: 02HV33Z Insertion of Infusion Device into Superior Vena Cava, Percutaneous Approach (ICD-10-PCS; 2018-03-05)
PROC: 30233N1 Transfusion of Nonautologous Red Blood Cells into Peripheral Vein, Percutaneous Approach (ICD-10-PCS; 2018-03-06)
PROC: 02HV33Z Insertion of Infusion Device into Superior Vena Cava, Percutaneous Approach (ICD-10-PCS; 2018-03-08)
DX: A40.8 Other streptococcal sepsis (principal); K57.21 Diverticulitis of large intestine with perforation and abscess with bleeding; D68.51 Activated protein C resistance; D62 Acute posthemorrhagic anemia; K26.9 Duodenal ulcer, unspecified as acute or chronic, without hemorrhage or perforation; E86.9 Volume depletion, unspecified; H40.9 Unspecified glaucoma; Z86.718 Personal history of other venous thrombosis and embolism
CPT/HCPCS: 82435-PO; 82565-PO; 82947-PO; 84132-PO; 84295-PO; 84484-ER; 84520-PO; 85014-ER; 96374; C1751; J0330; J0696; J1100; J1170; J1335; J1644; J1650; J1885; J2185; J2250; J2270; J2405; J2543; J2704; J2765; J2795; J3010; J3480; P9016; Q9967

== ENCOUNTER → 2018-03-15 | Outpatient (CLI) | payer OTHER ==
[~2018-03-15] MED LIST: IOPAMIDOL (ISOVUE 370) 100 ML BTL IV ONE
== END ==
LOC: FIMAGING 15:26
PROVIDERS: ATTEND Internal Medicine Infectious Disease
DX: R14.0 Abdominal distension (gaseous) (principal); K57.30 Diverticulosis of large intestine without perforation or abscess without bleeding; K76.89 Other specified diseases of liver
CPT/HCPCS: Q9967

== ENCOUNTER → 2018-03-18 | Outpatient (CLI) | payer OTHER | LOC: FIMAGING 15:09 | PROVIDERS: ATTEND Internal Medicine Infectious Disease | DX: K57.32 Diverticulitis of large intestine without perforation or abscess without bleeding (principal) ==